=== PATIENT | female | born 1960 | race Caucasian/White ===

== ENCOUNTER 2019-01-23 14:00 | Emergency (ER) | payer OTHER ==
[2019-01-23] MEDS ORDERED: ONDANSETRON 4 MG/2 ML VIAL ONE (14:22)
[2019-01-23] MEDS ORDERED: NA CHLORIDE 0.9% 1,000 ML ONE (14:22)
[2019-01-23 14:45] LABS: Absolute Lymphocytes (CBC) 3.3 K/uL (0.7-4.9); Basophils % 1.2 % (0-1.3); Hematocrit 39.7 % (36.0-45.0); Lymphocytes % 27.1 % (15.3-44.8); RBC Red Blood Cell Count 4.38 M/uL (3.86-4.86)
--- NOTE | 2019-01-23 14:48 | RAD REPORT ---
EXAM DESCRIPTION: US - Abdomen Exam Limited - 01/23/2019 2:30 pm CLINICAL HISTORY: Abdominal pain. COMPARISON: None. FINDINGS: The gallbladder is mildly distended. It contains small amount of sludge. Gallbladder wall is not thickened. Several small gallstones The common bile duct measures 11 millimeters IMPRESSION: Mild gallbladder distention Cholelithiasis Dilatation of the common bile duct
[2019-01-23 14:56] LABS: ALT/SGPT 67 U/L (12-78); AST/SGOT 115 U/L (15-37); Albumin 3.9 g/dL (3.4-5.0); Alkaline Phosphatase 132 U/L (45-117); BUN Blood Urea Nitrogen 18 mg/dL (7-18); Bicarbonate 24 mmol/L (21-32); Bilirubin Direct 0.2 mg/dL (0-0.2); Bilirubin Total 0.5 mg/dL (0.2-1.0); Glucose Level 113 mg/dL (74-106); Lipase 100 U/L (73-393); Potassium 3.8 mmol/L (3.5-5.1); Protein, Total 7.6 g/dL (6.4-8.2); Sodium Level 138 mmol/L (136-145); Troponin (Emerg Dept Use Only) < 0.02 ng/mL (0.0-0.045)
--- NOTE | 2019-01-23 15:23 | RAD REPORT ---
EXAM DESCRIPTION: CTAbdomen Pelvis W Contrast - 01/23/2019 3:13 pm CLINICAL HISTORY: Abdominal pain. 6 months s/p gastric bypass;Abd pain COMPARISON: Abdomen Exam Limited dated 01/23/2019 TECHNIQUE: Biphasic CT imaging of the abdomen and pelvis was performed with 100 ml non-ionic IV cont rast. All CT scans are performed using dose optimization technique as appropriate and may include automated exposure control or mA/KV adjustment according to patient size. FINDINGS: The lung bases are clear.Postsurgical changes are present about the stomach. Mild dilatation of the intrahepatic biliary tree is seen with gallbladder distention. Common bile dheeraj t also appears mildly prominent measuring 10-11 mm. No liver mass. Spleen is extremely small in size. The pancreas, adrenal glands and kidneys within normal limits. No bowel obstruction, free air, free fluid or abscess. The appendix is not identified as a discrete structure, however, no secondary findings of appendicitis are identified. No evidence of significan t lymphadenopathy. No suspicious bony findings. IMPRESSION: The gallbladder appears distended with mild intrahepatic biliary tree dilatation noted. Common bile duct also appears mildly prominent measuring 10-11 mm.
[2019-01-23 15:42] LABS: Urine Blood NEGATIVE (NEG); Urine Glucose NEGATIVE (NEG); Urine Protein NEGATIVE (NEG); Urine Specific Gravity 1.015 (1.005-1.030)
--- NOTE | 2019-01-23 15:46 | EKG ---
Test Date: 2019-01-23 Test Time: 15:02:22 Rotary Operator: CATHY MEASUREMENT RESULTS: Intervals: Rate: 49 HI: 166 QRSD: 84 QT: 432 QTc: 390 [place]: P: 59 HI: 166 QRS: 21 T: 65 INTERPRETIVE STATEMENTS: Sinus bradycardia with sinus arrhythmia Otherwise normal ECG No previous ECG available for comparison Electronically Signed On 01-23-19 15:46:35 CDT by Gilbert Alonso
--- NOTE | 2019-01-23 16:03 | EDPHYS ---
Physician Documentation [facility] Name: Marli Fragoso Age: 59 yrs Sex: Female : 1960 Arrival Date: 01/23/2019 Time: 14:01 Bed 6 Private MD: ED Physician Austin Martinez HPI: 01/23 14:29 This 59 yrs old Female presents to ER via EMS with complaints of Abd Pain > rn 50 y/o. 14:29 The patient presents with abdominal pain in the epigastric area. Onset: The rn symptoms/episode began/occurred just prior to arrival. The symptoms do not radiate. Associated signs and symptoms: Pertinent positives: nausea, Pertinent negatives: anorexia, blood in stools, chest pain, constipation, diarrhea, dysuria, fever, hematuria, shortness of breath, vaginal discharge, vomiting, vomiting blood. The symptoms are described as achy, crampy, sharp. Modifying factors: The symptoms are alleviated by nothing, the symptoms are aggravated by touching the area. Severity of pain: At its worst the pain was moderate in the emergency department the pain has improved. The patient has not experienced similar symptoms in the past. The patient has not recently seen a physician. Sudden abd pain that began at rest, no fever, + nausea, no diarrhea. Reports gastric bypass 6 months ago, has been fine since then. No radiation to back.. Historical: - Allergies: 14:12 No Known Allergies; sg - Home Meds: 14:12 Synthroid Oral [Active]; Cholesterol Medication- Non Compliant [Active]; sg - PMHx: 14:12 Hypothyroidism; sg - PSHx: 14:12 None; sg - Immunization history:: Adult Immunizations up to date. - Social history:: Smoking status: Patient/guardian denies using tobacco. - Ebola Screening: : Patient negative for fever greater than or equal to 101.5 degrees Fahrenheit, and additional compatible Ebola Virus Disease symptoms Patient denies exposure to infectious person Patient denies travel to an Ebola-affected area in the 21 days before illness onset No symptoms or risks identified at this time. - Family history:: not pertinent. - Hospitalizations: : No recent hospitalization is reported. ROS: 14:29 Constitutional: Negative for fever, chills, and weight loss, Eyes: Negative for injury, rn pain, redness, and discharge, Neck: Negative for injury, pain, and swelling, Cardiovascular: Negative for chest pain, palpitations, and edema, Respiratory: Negative for shortness of breath, cough, wheezing, and pleuritic chest pain, Abdomen/GI: Negative for vomiting, diarrhea, and constipation, Back: Negative for injury and pain, : Negative for injury, bleeding, discharge, and swelling, MS/Extremity: Negative for injury and deformity, Skin: Negative for injury, rash, and discoloration, Neuro: Negative for headache, weakness, numbness, tingling, and seizure. Exam: 14:29 Constitutional: This is a well developed, well nourished patient who is awake, alert, rn holding abd. Head/Face: Normocephalic, atraumatic. ENT: MMM Cardiovascular: Regular rate and rhythm. No pulse deficits. Respiratory: No increased work of breathing, no retractions or nasal flaring. Speaking full sentences. Abdomen/GI: soft, + RUQ tenderness, no rebound, no peritoneal signs. MS/ Extremity: Pulses equal, no cyanosis. Neurovascular intact. Full, normal range of motion. Equal circumference. Neuro: Awake and alert, GCS 15, oriented to person, place, time, and situation. Cranial nerves II-XII grossly intact. Motor strength 5/5 in all extremities. Sensory grossly intact. Vital Signs: 14:12 BP 161 / 89; Pulse 92; Resp 16; Temp 97.5(O); Pulse Ox 100% on R/A; Pain 6/10; sg 16:00 BP 146 / 86; Pulse 89; Resp 16 S; Pulse Ox 100% on R/A; jl7 17:30 BP 136 / 79; Pulse 84; Resp 17 S; Pulse Ox 100% on R/A; jl7 19:15 BP 122 / 67; Pulse 55; Resp 16; Temp 97.4(O); Pulse Ox 98% on R/A; jb4 20:14 BP 133 / 76; Pulse 62; Resp 16; Pulse Ox 98% on R/A; jb4 MDM: 14:01 Patient medically screened. rn 14:47 Refusal of service: The patient/guardian displays adequate decision making capability rn and despite a detailed discussion of alternatives, benefits, risks, and consequences refuses: pain medication. 16:00 Differential diagnosis: cholecystitis, Cholelithiasis, gastritis, gastroesophageal rn reflux disease, non-specific abd pain, pancreatitis, Peptic Ulcer Disease. Data reviewed: vital signs, nurses notes, lab test result(s), radiologic studies, CT scan, ultrasound, and as a result, I will admit patient. Counseling: I had a detailed discussion with the patient and/or guardian regarding: the historical points, exam findings, and any diagnostic results supporting the discharge/admit diagnosis, lab results, radiology results, the need for further work-up and treatment in the hospital. Response to treatment: the patient's symptoms have markedly improved after treatment, and as a result, I will admit patient. Admission orders: after a detailed discussion of the patient's condition and case, the admit orders are written by me. ED course: Patient with possible choledocholithiasis vs sphincter of Oddi dysfunction, will admit for MRCP, GI, and surgery consult. . 16:38 ED course: Dr. Meyers spoke with Dr. Soria who states patient must be transferred to [facility] given hx of gastric bypass surgery and he states will not be able to perform ERCP here. . 18:30 ED course: Accepted for transfer to [facility] for GI, hospitalist admit. rn 01/23 14:03 Order name: Basic Metabolic Panel; Complete Time: 15:10 01/23 14:03 Order name: CBC with Diff; Complete Time: 15:10 01/23 14:03 Order name: Creatinine for Radiology; Complete Time: 15:10 01/23 14:03 Order name: Hepatic Function; Complete Time: 15:10 01/23 14:03 Order name: Lipase; Complete Time: 15:10 01/23 14:03 Order name: Troponin (emerg Dept Use Only); Complete Time: 15:10 rn 01/23 14:03 Order name: US Abdomen Limited; Complete Time: 15:10 rn 01/23 14:03 Order name: CT Abd/Pelvis - IV Contrast Only; Complete Time: 15:36 rn 01/23 14:03 Order name: EKG; Complete Time: 14:04 rn 01/23 15:28 Order name: Urine Dipstick--Ancillary (enter results); Complete Time: 15:57 az 01/23 14:03 Order name: IV Saline Lock; Complete Time: 14:16 rn 01/23 14:03 Order name: Labs collected and sent; Complete Time: 14:16 rn 01/23 14:03 Order name: EKG - Nurse/Tech; Complete Time: 15:19 rn Administered Medications: 15:20 Drug: NS 0.9% 1000 ml Route: IV; Rate: 1000 ml; Site: left forearm; sg 16:19 Follow up: Response: No adverse reaction; IV Status: Completed infusion; IV Intake: sg 990ml 16:08 Drug: Rocephin - (cefTRIAXone) 1 grams Route: IVPB; Infused Over: 30 mins; Site: left sg forearm; 16:40 Follow up: Response: No adverse reaction; IV Status: Completed infusion sg 16:18 Drug: Flagyl 500 mg Volume: 100 ml; Route: IVPB; Rate: 200 ml/hr; Infused Over: 30 sg mins; Site: left forearm; 16:50 Follow up: Response: No adverse reaction; IV Status: Completed infusion jl7 17:12 Drug: Zofran 4 mg Route: IVP; Site: left forearm; sg 17:30 Follow up: Response: No adverse reaction; Nausea is decreased jl7 Disposition: 01/23/19 18:32 Transfer ordered to [facility]. Diagnosis are Cholelithiasis, Biliary dilatation, Upper abdominal pain, unspecified. - Reason for transfer: Higher level of care. - Accepting physician is Dr. Ackerman. - Condition is Stable. - Problem is new. - Symptoms have improved. Signatures: Dispatcher [employer] EDMS Enoch Willis RN RN sg Austin Martinez MD MD rn Bryson, James, RN RN jb4 Michelle Marino RN jl7 Corrections: (The following items were deleted from the chart) 16:49 16:02 Hospitalization Ordered by Edgar Meyers DO for Inpatient Admission. Preliminary rn diagnosis is Cholelithiasis; Biliary dilatation. Bed requested for Telemetry/MedSurg (Inpatient). Status is Inpatient Admission. Condition is Stable. Problem is new. Symptoms have improved. UTI on Admission? No. rn 20:19 18:32 01/23/2019 18:32 Transfer ordered to [facility]. Diagnosis is jb4 Cholelithiasis; Biliary dilatation; Upper abdominal pain, unspecified. Reason for transfer: Higher level of care. Accepting physician is Dr. Ackerman. Condition is Stable. Problem is new. Symptoms have improved. rn
--- NOTE | 2019-01-23 16:03 | ER ---
Nurse's Notes [facility] Name: Marli Fragoso Age: 59 yrs Sex: Female : 1960 Arrival Date: 01/23/2019 Time: 14:01 Bed 6 Private MD: Diagnosis: Cholelithiasis;Biliary dilatation;Upper abdominal pain, unspecified Presentation: 01/23 14:12 Presenting complaint: EMS states: RUQ abd pain that began while at work about 30 mins sg ago, reports nausea as well, denies Fever/Diarrhea at this time. Transition of care: patient was not received from another setting of care. Onset of symptoms was January 23, 2019. Risk Assessment: Do you want to hurt yourself or someone else? Patient reports no desire to harm self or others. Initial Sepsis Screen: Does the patient meet any 2 criteria? HR > 90 bpm. No. Patient's initial sepsis screen is negative. Does the patient have a suspected source of infection? Yes: Acute abdominal pain. Care prior to arrival: Medication(s) given: Normal saline infusion, 500 mL, IV initiated. 20 GA, in the left forearm. 14:12 Method Of Arrival: EMS: [facility] sg 14:12 Acuity: RHIANNON 3 sg Historical: - Allergies: 14:12 No Known Allergies; sg - Home Meds: 14:12 Synthroid Oral [Active]; Cholesterol Medication- Non Compliant [Active]; sg - PMHx: 14:12 Hypothyroidism; sg - PSHx: 14:12 None; sg - Immunization history:: Adult Immunizations up to date. - Social history:: Smoking status: Patient/guardian denies using tobacco. - Ebola Screening: : Patient negative for fever greater than or equal to 101.5 degrees Fahrenheit, and additional compatible Ebola Virus Disease symptoms Patient denies exposure to infectious person Patient denies travel to an Ebola-affected area in the 21 days before illness onset No symptoms or risks identified at this time. - Family history:: not pertinent. - Hospitalizations: : No recent hospitalization is reported. Screenin:12 Abuse screen: Denies threats or abuse. Denies injuries from another. Nutritional sg screening: No deficits noted. Tuberculosis screening: No symptoms or risk factors identified. Never had TB. Fall Risk None identified. Assessment: 14:12 General: Appears in no apparent distress. uncomfortable, ill, well groomed, well sg developed, well nourished, Behavior is calm, cooperative, appropriate for age. Pain: Complains of pain in right upper quadrant Quality of pain is described as aching, sharp, stabbing. Neuro: Level of Consciousness is awake, alert, obeys commands, Oriented to person, place, time, situation, Moves all extremities. Gait is steady, Speech is normal, Facial symmetry appears normal. Cardiovascular: Heart tones S1 S2 present Patient's skin is warm and dry. Chest pain is denied. Respiratory: Airway is patent Respiratory effort is even, unlabored, Respiratory pattern is regular, symmetrical. GI: Bowel sounds present X 4 quads. Abd is soft X 4 quads Reports nausea, Pain is 6 out of 10 on a pain scale. : No signs and/or symptoms were reported regarding the genitourinary system. EENT: No signs and/or symptoms were reported regarding the EENT system. Derm: Skin is pink, warm \\T\\ dry. Musculoskeletal: Circulation, motion, and sensation intact. Range of motion: intact in all extremities. 14:12 Reassessment: Patient appears in no apparent distress at this time. offered pt sg pain medication, pt reports " I dont really like pain medication, but if anything changes I will let you know.". 15:20 Reassessment: Patient appears in no apparent distress at this time. pt returned from CT sg at this time, assisted to restroom where a urine sample has been obtained. 17:00 Reassessment: Patient appears in no apparent distress at this time. Patient and/or sg family updated on plan of care and expected duration. Pain level reassessed. Patient is alert, oriented x 3, equal unlabored respirations, skin warm/dry/pink. instructed to please notify staff of any changes and need for pain medication, pt stated understanding, the call light is within reach Patient denies pain at this time. 18:00 Reassessment: Patient appears in no apparent distress at this time. No changes from jl7 previously documented assessment. Patient and/or family updated on plan of care and expected duration. Pain level reassessed. Patient is alert, oriented x 3, equal unlabored respirations, skin warm/dry/pink. 19:02 Reassessment: Patient appears in no apparent distress at this time. attempt to call sg report, instructed to call back due to change of shift, report handed off to Yanira RN, Blake RN. 19:15 Reassessment: Patient appears in no apparent distress at this time. Patient and/or jb4 family updated on plan of care and expected duration. Pain level reassessed. Patient is alert, oriented x 3, equal unlabored respirations, skin warm/dry/pink. 19:41 Reassessment: Report called to AN[facility]IA [facility]. jb4 20:14 Reassessment: Patient appears in no apparent distress at this time. Patient and/or jb4 family updated on plan of care and expected duration. Pain level reassessed. Patient is alert, oriented x 3, equal unlabored respirations, skin warm/dry/pink. PT transferred to receiving facility via EMS. Vital Signs: 14:12 BP 161 / 89; Pulse 92; Resp 16; Temp 97.5(O); Pulse Ox 100% on R/A; Pain 6/10; sg 16:00 BP 146 / 86; Pulse 89; Resp 16 S; Pulse Ox 100% on R/A; jl7 17:30 BP 136 / 79; Pulse 84; Resp 17 S; Pulse Ox 100% on R/A; jl7 19:15 BP 122 / 67; Pulse 55; Resp 16; Temp 97.4(O); Pulse Ox 98% on R/A; jb4 20:14 BP 133 / 76; Pulse 62; Resp 16; Pulse Ox 98% on R/A; jb4 ED Course: 14:01 Patient arrived in ED. jl7 14:01 Austin Martinez MD is Attending Physician. rn 14:05 Radiology exam delayed due to lab results not completed at this time. (BUN/Creatinine). 2 14:11 Enoch Willis, RN is Primary Nurse. sg 14:11 Arm band placed on. sg 14:12 Initial lab(s) drawn, by me, sent to lab. Maintain EMS IV. Dressing intact. Site clean sg \\T\\ dry. Gauge \\T\\ site: 20 G Left Forearm. IV is patent, is intact, with good blood return. 14:16 Triage completed. sg 14:17 Patient has correct armband on for positive identification. Bed in low position. Call sg light in reach. Side rails up X2. ekg monitor on. Pulse ox on. NIBP on. Warm blanket given. Head of bed elevated. 14:31 US Abdomen Limited In Process Unspecified. EDMS 15:07 EKG done, by obstetrics tech. reviewed by Austin Martinez MD. at1 15:13 CT Abd/Pelvis - IV Contrast Only In Process Unspecified. EDMS 15:15 CT completed. Patient tolerated procedure well. Patient moved to CT via wheelchair. in Patient moved back from CT. 16:01 Edgar Meyers DO is Hospitalizing Provider. rn 17:30 No provider procedures requiring assistance completed. jl7 20:14 Patient transferred, IV remains in place. jb4 Administered Medications: 15:20 Drug: NS 0.9% 1000 ml Route: IV; Rate: 1000 ml; Site: left forearm; sg 16:19 Follow up: Response: No adverse reaction; IV Status: Completed infusion; IV Intake: sg 990ml 16:08 Drug: Rocephin - (cefTRIAXone) 1 grams Route: IVPB; Infused Over: 30 mins; Site: left sg forearm; 16:40 Follow up: Response: No adverse reaction; IV Status: Completed infusion sg 16:18 Drug: Flagyl 500 mg Volume: 100 ml; Route: IVPB; Rate: 200 ml/hr; Infused Over: 30 sg mins; Site: left forearm; 16:50 Follow up: Response: No adverse reaction; IV Status: Completed infusion jl7 17:12 Drug: Zofran 4 mg Route: IVP; Site: left forearm; sg 17:30 Follow up: Response: No adverse reaction; Nausea is decreased jl7 Intake: 16:19 IV: 990ml; Total: 990ml. sg Outcome: 16:02 Decision to Hospitalize by Provider. rn 18:32 ER care complete, transfer ordered by . rn 20:14 Transferred by ground EMS to [facility], Transfer form completed. jb4 X-rays sent w/ patient. 20:14 Condition: stable 20:14 Discharge instructions given to patient, Instructed on the need for transfer, Demonstrated understanding of instructions. 20:19 Patient left the ED. jb4 Signatures: Dispatcher [employer] EDMS Enoch Willis RN RN sg Austin Martinez MD MD rn Gonzales, Amanda, mine manager EKG Tat1 Blake Partida RN RN jb4 Vinnie Horton Jahala, ANTONIA RN jl7 Gayla Rayo [facility]
[2019-01-23] MEDS ORDERED: METRONIDAZOLE 500mg IVPB 500 MG/100 ML BAG IV ONE (16:06)
[2019-01-23] MEDS ORDERED: CEFTRIAXONE/SWI 1gm 1 GM/10 ML SYR ONE (16:06)
[2019-01-23 20:28] VITALS: TEMP 97.4; O2SAT 98
[2019-01-23 20:29] VITALS: BP 133/76
== END 2019-01-23 20:19 | disposition short-term general hospital (02) ==
LOC: ER 14:00
DX: K80.20 Calculus of gallbladder without cholecystitis without obstruction (principal); K83.8 Other specified diseases of biliary tract; R10.10 Upper abdominal pain, unspecified; E03.9 Hypothyroidism, unspecified
CPT/HCPCS: 96365; 96361; 93005; 85025; 80048; 36415; 80076; 81003; 84484; 83690; 74177; 76705; 96375; 99285; Q9967; J0696; J7030; J2405

== ENCOUNTER 2019-09-04 19:46 | Inpatient (IN) | payer SELFPAY ==
--- OUTSIDE RECORDS SUMMARY | 2019-09-04 20:16 | XMS REPORT | Clinical Summary ---
:1960 Author Organization [facility] Address [address] [place] [address] Care Team Providers Name Role Phone Unavailable Primary Care Provider Unavailable Allergies Active Allergy Reactions Severity Noted Date Comments Codeine Hives 01/23/2019 Erythromycin Hives 01/23/2019 Sulfa (Sulfonamide Antibiotics) Hives 9 Medications Medication Sig Dispensed Refills Start Date End Date Status levothyroxine Take 112 mcg by 0 Active (SYNTHROID, LEVOTHROID) mouth Every 112 MCG tablet morning on an empty stomach. atorvastatin (LIPITOR) Take 10 mg by 0 Active 10 MG tablet mouth nightly. Active Problems Problem Noted Date Calculus of gallbladder without cholecystitis without obstruction 01/25/2019 Biliary colic 01/25/2019 Cholelithiasis without cholecystitis 01/25/2019 Fatty liver 01/24/2019 Transaminitis 01/24/2019 Choledocholithiasis 01/23/2019 Encounters Date Type Specialty Care Team Description 01/26/2019 Anesthesia Event Domitila Cadet MD 01/26/2019 Surgery Henri, LAPAROSCOPY,CHO GIBSON Pete MD Y 01/23/2019 - Hospital Encounter General Internal Alida Ackerman docholithiasis (Primary Dx); 01/27/2019 Medicine MD Neida Fatty liver; Rivka Murillo Transaminitis; MD Dipak Biliary colic; Calculus of gal lbladder without cholecystitis without obstruction 01/23/2019 Documentation Internal Chalo Ackerman MD after 09/03/2018 Family History Medical History Relation Name Comments Heart disease Brother Heart disease Daughter Hypertension Father Diabetes Paternal Grandmother Heart disease Sister Relation Name Status Comments Brother Daughter Father Paternal Grandmother Sister Social History Tobacco Use Types Packs/Day Years Used Date Never Smoker Smokeless Tobacco: Never Used Alcohol Use Drinks/Week oz/Week Comments No Alcohol Habits Answer Date Recorded How often do you have a drink containing alcohol? Never 01/23/2019 How many drinks containing alcohol do you have on a typical Not asked day when you are drinking? How often do you have six or more drinks on one occasion? No t asked Sex Assigned at Date Recorded Not on file Job Start Date Occupation Industry Not on file Not on file Not on file Travel History Travel Start Travel End No recent travel history available. Last Filed Vital Signs Vital Sign Reading Time Taken Blood Pressure 118/70 01/27/2019 8:21 AM CHIEF BUILDING INSPECTOR Pulse 60 01/27/2019 8:21 AM CHIEF BUILDING INSPECTOR Temperature 36.8 C (98.2 F) 01/27/2019 8:21 AM CHIEF BUILDING INSPECTOR Respiratory Rate 18 01/27/2019 8:21 AM CHIEF BUILDING INSPECTOR Oxygen Saturation 97% 01/27/2019 8:21 AM CHIEF BUILDING INSPECTOR Inhaled Oxygen Concentration - - Weight 86.2 kg (190 lb) 01/23/2019 10:14 PM CDT Height 167.6 cm (5' 6") 01/23/2019 10:14 PM CDT Body Mass Index 30.67 01/23/2019 10:14 PM CDT Plan of Treatment Health Maintenance Due Date Last Done Comments BREAST CANCER SCREENING 1960 COLON CANCER SCREENING COLONOSCOPY 1960 INFLUENZA VACCINE (#1) 2018 Procedures Procedure Name Priority Date/Time Associated Comments Diagnosis RHYTHM STRIP - SCAN 01/29/2019 10:21 AM CHIEF BUILDING INSPECTOR TRANSFUSION SERVICE 01/27/2019 6:01 REPORT - SCAN PM CHIEF BUILDING INSPECTOR CBC W/PLT COUNT & Routine 01/27/2019 4:49 Result s for this AUTO DIFFERENTIAL AM CHIEF BUILDING INSPECTOR procedure are in the results section. BASIC METABOLIC PANEL Routine 01/27/2019 4:49 Re sults for this (7) AM CHIEF BUILDING INSPECTOR procedure are i n the results section. CBC W/PLT COUNT & Routine 01/27/2019 4:49 Result s for this AUTO DIFFERENTIAL AM CHIEF BUILDING INSPECTOR procedure are in the results section. HEPATIC FUNCTION Routine 01/27/2019 4:49 Results for this PANEL AM CHIEF BUILDING INSPECTOR procedure are i n the results section. TISSUE EXAM AP Routine 01/26/2019 5:02 Results for this PM CHIEF BUILDING INSPECTOR procedure are i n the results section. LAPAROSCOPY,CHOLECYST 01/26/2019 9:48 Biliary colic ECTOMY AM CHIEF BUILDING INSPECTOR Special Needs REQ: TF ABORH, MANUAL STAT 01/26/2019 5:16 AM CHIEF BUILDING INSPECTOR Res ults for this procedure are i n the results section . CBC W/PLT COUNT & AUTO Routine 01/26/2019 4:53 AM CHIEF BUILDING INSPECTOR Results for this DIFFERENTIAL procedure are i n the results section . TYPE AND SCREEN, AUTOMATED Routine 01/26/2019 4:53 AM CHIEF BUILDING INSPECTOR Results for this procedure are i n the results section . HEPATIC FUNCTION PANEL Routine 01/26/2019 4:53 AM CHIEF BUILDING INSPECTOR Results for this procedure are i n the results section . BASIC METABOLIC PANEL (7) Routine 01/26/2019 4:53 AM CHIEF BUILDING INSPECTOR Results for this procedure are i n the results section . CBC W/PLT COUNT & AUTO Routine 01/26/2019 4:53 AM CHIEF BUILDING INSPECTOR Results for this DIFFERENTIAL procedure are i n the results section . T4, FREE Routine 01/25/2019 4:39 AM CHIEF BUILDING INSPECTOR Resu lts for this procedure are i n the results section . TSH/FREE T4 IF INDICATED Routine 01/25/2019 4:39 AM CHIEF BUILDING INSPECTOR Results for this procedure are i n the results section . HEPATITIS PANEL, ACUTE Routine 01/25/2019 4:39 AM CHIEF BUILDING INSPECTOR Results for this procedure are i n the results section . HEPATIC FUNCTION PANEL Routine 01/25/2019 4:39 AM CHIEF BUILDING INSPECTOR Results for this procedure are i n the results section . MR ABDOMEN WO CONTRAST MRCP Routine 01/24/2019 3:50 PM CDT Results for this procedure are i n the results section . BLOOD CULTURE Routine 01/24/2019 12:43 AM CDT Res ults for this procedure are i n the results section . CBC W/PLT COUNT & AUTO Routine 01/24/2019 12:37 AM CDT Results for this DIFFERENTIAL procedure are i n the results section . LIPASE Routine 01/24/2019 12:37 AM CDT Resu lts for this procedure are i n the results section . PROTHROMBIN TIME/INR Routine 01/24/2019 12:37 AM CDT Results for this procedure are i n the results section . HEPATIC FUNCTION PANEL Routine 01/24/2019 12:37 AM CDT Results for this procedure are i n the results section . CBC W/PLT COUNT & AUTO Routine 01/24/2019 12:37 AM CDT Results for this DIFFERENTIAL procedure are i n the results section . BASIC METABOLIC PANEL (7) Routine 01/24/2019 12:37 AM CDT Results for this procedure are i n the results section . BLOOD CULTURE Routine 01/24/2019 12:37 AM CDT Res ults for this procedure are i n the results section . after 09/03/2018 Results RHYTHM STRIP - SCAN (01/29/2019 10:21 AM CHIEF BUILDING INSPECTOR) Narrative Performed At This result has an attachment that is no t available. TRANSFUSION SERVICE REPORT - SCAN (01/27/2019 6:01 PM CHIEF BUILDING INSPECTOR) Narrative Performed At This result has an attachment that is no t available. CBC with platelet count + automated diff (01/27/2019 4:49 AM CHIEF BUILDING INSPECTOR)Only the most recent of3 resultswithin the time period is included. WBC 12.7 (H) 3.5 - 10.5 K/L [facility] RBC 4.49 3.93 - 5.22 M/L [facility] Hemoglobin 13.4 11.2 - 15.7 GM/DL [facility] Hematocrit 41.5 34.1 - 44.9 % [facility] MCV 92.4 79.4 - 94.[address] [facility] MCH 29.8 25.6 - 32.[address] [facility] MCHC 32.3 32.2 - 35.5 GM/DL [facility] RDW 13.9 11.7 - 14.4 % [facility] Platelets 416 150 - 450 K/CU MM [facility] MPV 11.4 9.4 - 12.[address] [facility] nRBC 0 0 - 0 /[address] [facility] % Neutros 85 % [facility] % Lymphs 9 % [facility] % Monos 6 % [facility] % Eos 0 % [facility] % Baso 0 % [facility] # Neutros 10.75 (H) 1.56 - 6.13 K/L [facility] # Lymphs 1.15 (L) 1.18 - 3.74 K/L [facility] # Monos 0.74 (H) 0.24 - 0.36 K/L [facility] # Eos 0.00 (L) 0.04 - 0.36 K/L [facility] # Baso 0.04 0.01 - 0.08 K/L [facility] Immature 0 0 - 1 % [facility] Granulocytes-Relative MEDICAL CE NTER Specimen Blood Performing Organization Address City/State/Zipcode Phone Number [address] [address] [place] Hepatic function panel (01/27/2019 4:49 AM CHIEF BUILDING INSPECTOR)Only the most recent of4 results within the time period is included. Protein, Total 7.2 6.0 - 8.3 gm/dL [facility] Albumin 4.0 3.5 - 5.0 g/dL [facility] Total Bilirubin 0.5 0.2 - 1.2 mg/dL [facility] Bilirubin, Direct 0.2 0.1 - 0.5 mg/dL [facility] Alkaline Phosphatase 166 (H) 40 - 150 U/L [facility] AST 76 (H) 5 - 34 U/L [facility] ALT 217 (H) 6 - 55 U/L [facility] Specimen Blood Performing Organization Address City/State/Zipcode Phone Number [address] [address] [place] Basic Metabolic Panel (01/27/2019 4:49 AM CHIEF BUILDING INSPECTOR)Only the most recent of3 results within the time period is included. Sodium 138 136 - 145 meq/L [facility] Potassium 5.1 3.5 - 5.1 meq/L [facility] Chloride 106 98 - 107 meq/L [facility] CO2 25 22 - 29 meq/L [facility] BUN 8 7 - 21 mg/dL [facility] Creatinine 0.71 0.57 - 1.25 mg/dL [facility] Glucose 132 (H) 70 - 105 mg/dL [facility] Calcium 9.3 8.4 - 10.2 mg/dL [facility] EGFR 84Comment: ESTIMATED GFR IS mL/min/1.73 sq m [facility] NOT ACCURATE CREATININE [facility] CLEARANCE IN PREDICTING GLOMERULAR FILTRATION RATE. ESTIMATED GFR IS NOT APPLICABLE FOR DIALYSIS PATIENTS. Specimen Blood Performing Organization Address City/State/Zipcode Phone Number [facility] [address] [place] [address] CENTER Tissue Exam (01/26/2019 5:02 PM CHIEF BUILDING INSPECTOR) Case Report Surgical Pathology Report Case: [id number] [facility] Authorizing Provider:Juan R Black MDCollected: 01/26/2019 [facility] Ordering Location: [facility] PERIOPERATIVE Received:01/26/2019 1749 SERVICES Pathologist: Domi Williamson MD Specimen:Gallbladder DIAGNOSIS GALLBLADDER, CHOLECYSTECTOMY [facility] - CHRONIC CHOLECYSTITIS [facility] Signing Pathologist Direct Phone Line: CPT Code(s) 16657 [facility] CLINICAL HISTORY Biliary colic [facility] ER SPECIMEN SOURCE Gallbladder [facility] ER GROSS DESCRIPTION Received fresh labeled [facility] "gallbladder" is a 13.5 cm [facility] in length, 2 cm in cystic duct diameter and 4.5 cm cystic body diameter intact gallbladder. The serosa is astudillo-pink and smooth with a ragged slightly cauterized hepatic surface. No cystic duct lymph node is identified. The gallbladder is opened to reveal a astudillo-red, slightly bile stained, velvety, smooth, soft mucosa with a cavity filled with viscous green bile. Sectioning reveals a soft astudillo-pink gallbladder wall measuring up to 0.2 cm in thickness. No calculi are identified. No discrete lesions are identified within the wall. Ict Business Development Manager sections are submitted as follows: A1, cystic duct margin, en face; A2, leasing representative gallbladder wall to include cystic duct and cystic body. SH/ew MICROSCOPIC DESCRIPTION Performed. [facility] ER Gross assessment was [facility] performed at [place], Department of [facility] Pathology, [address] [place] [id number], Technical component was [facility] performed at [place], Department of [facility] Pathology, [address] [place] [phone], Professional component [facility] was performed at [place], Department of [facility] Pathology, [address] [place] [address], Specimen Tissue Performing Organization Address City/[facility]/Zipcode Phone Number [address] [address] [place] ABORH, manual (01/26/2019 5:16 AM CHIEF BUILDING INSPECTOR) ABO Grouping A [facility] Rh Factor NEG [facility] Specimen Blood Performing Organization Address City/State/Zipcode Phone Number [address] [address] Type and screen, automated (01/26/2019 4:53 AM CHIEF BUILDING INSPECTOR) ABO/RH AUTOMATED (BEAKER) A NEGATIVE [facility] Ab Scrn NEGATIVE [facility] Specimen Blood Performing Organization Address City/[facility]/Zipcode Phone Number [facility] [address] [place], [place] [phone] TSH/Free T4 If Indicated (01/25/2019 4:39 AM CHIEF BUILDING INSPECTOR) TSH 5.32 (H) 0.35 - 4.94 uIU/mL [facility] Specimen Blood Performing Organization Address City/[facility]/Zipcode Phone Number [address] [address] [place] Hepatitis panel, acute (01/25/2019 4:39 AM CHIEF BUILDING INSPECTOR) Hep A IgM Nonreactive Nonreactive [facility] Hep B C IgM Nonreactive Nonreactive [facility] Hepatitis C Ab Nonreactive Nonreactive [facility] HBsAg Screen Nonreactive Nonreactive [facility] Specimen Blood Performing Organization Address City/[facility]/Zipcode Phone Number [address] [phone] [place] T4, free (01/25/2019 4:39 AM CHIEF BUILDING INSPECTOR) Free T4 0.91 0.70 - 1.48 ng/dL [facility] Specimen Blood Performing Organization Address City/[facility] Cent[facility]ode Phone Number [address] [address] [place] MR abdomen without IV contrast MRCP (01/24/2019 3:50 PM CDT) Specimen Narrative Performed At FINAL REPORT [facility] TECHNIQUE: MRI of the abdomen and MRCP W ITHOUT intravenous contrast. 3-D volume reconstructions were obtained to evaluate the biliary ductal system. INDICATION: Biliary obstruction suspecte d. COMPARISON: None. FINDINGS: ABSENCE OF INTRAVENOUS CONTRAST DECREASE S SENSITIVITY FOR DETECTION OF FOCAL LESIONS AND VASCULAR PATHOLOGY. LOWER THORAX: Unremarkable. LIVER: No hepatic signal abnormality. No focal hepatic lesions. BILIARY: The gallbladder wall is thicken ed, and the gallbladder contains sludge. The sludge extends into the cystic duct. While the entire cystic duct is not able to be vis ualized, there is likely a portion which inserts low and medial. SPLEEN: Small residual spleen. PANCREAS: No focal masses or ductal dila tation. ADRENALS: No adrenal nodules. KIDNEYS/URETERS: No hydronephrosis or so lid mass lesions. A left lower pole parapelvic simple renal cyst measures 1.7 cm. PERITONEUM/RETROPERITONEUM: No free flui d. LYMPH NODES: No lymphadenopathy. Promine nt but nonenlarged mesenteric, retroperitoneal, and upper a bdominal lymph nodes are likely reactive. VESSELS: Unremarkable. GI TRACT: No distention or wall thickeni ng. Prior Sergio-en-Y gastric bypass. BONES AND SOFT TISSUES: Prior bilateral breast augmentation. IMPRESSION: 1.There is gallbladder wall thickening w ith gallbladder sludge including sludge in the cystic duct. Jose e small, rounded areas of hypointense T2 weighted signal could be stones. This could be clarified with ultrasound. While this is nonspecific, this could be due to acute cholecystitis in the [facility] clinical setting. If further imaging evaluation is necessary, consider HIDA. 2.The common bile duct is normal in zully salome at 0.6 cm in diameter. No choledocholithiasis. 3.The prominent but nonenlarged retroper itoneal, mesenteric and perihepatic lymph nodes are likely react manohar. Signed: Baljeet Gillis MD Report Verified Date/Time:01/24/2019 17:38:42 Reading Location: [facility] C0Y CT Body R [facility] Procedure Note Interface, External Ris In - 01/24/2019 5:40 PM CDT FINAL REPORT TECHNIQUE: MRI of the abdomen and MRCP W ITHOUT intravenous contrast. 3-D volume reconstructions were obtained to evaluate the biliary ductal system. INDICATION: Biliary obstruction suspecte d. COMPARISON: None. FINDINGS: ABSENCE OF INTRAVENOUS CONTRAST DECREASE S SENSITIVITY FOR DETECTION OF FOCAL LESIONS AND VASCULAR PATHOLOGY. LOWER THORAX: Unremarkable. LIVER: No hepatic signal abnormality. No focal hepatic lesions. BILIARY: The gallbladder wall is thicken ed, and the gallbladder contains sludge. The sludge extends into the cystic duct. While the entire cystic duct is not able to be vis ualized, there is likely a portion which inserts low and medial. SPLEEN: Small residual spleen. PANCREAS: No focal masses or ductal dila tation. ADRENALS: No adrenal nodules. KIDNEYS/URETERS: No hydronephrosis or so lid mass lesions. A left lower pole parapelvic simple renal cyst measures 1.7 cm. PERITONEUM/RETROPERITONEUM: No free flui d. LYMPH NODES: No lymphadenopathy. Promine nt but nonenlarged mesenteric, retroperitoneal, and upper a bdominal lymph nodes are likely reactive. VESSELS: Unremarkable. GI TRACT: No distention or wall thickeni ng. Prior Sergio-en-Y gastric bypass. BONES AND SOFT TISSUES: Prior bilateral breast augmentation. IMPRESSION: 1.There is gallbladder wall thickening w ith gallbladder sludge including sludge in the cystic duct. Jose e small, rounded areas of hypointense T2 weighted signal could be stones. This could be clarified with ultrasound. While this is nonspecific, this could be due to acute cholecystitis in the [facility] clinical setting. If further imaging evaluation is necessary, consider HIDA. 2.The common bile duct is normal in zully salome at 0.6 cm in diameter. No choledocholithiasis. 3.The prominent but nonenlarged retroper itoneal, mesenteric and perihepatic lymph nodes are likely react manohar. Signed: Baljeet Gillis MD Report Verified Date/Time: 01/24/2019 1 7:38:42 Reading Location: [facility] B1 C013Y CT Body R [facility] Room Performing Organization Address City/State/Zipcode Phone Number [facility] Blood Culture - Routine (Right Venipuncture) (01/24/2019 12:43 AM CDT)Only the most recent of2 resultswithin the time period is included. Result No growth in 5 days [facility] Specimen Blood Performing Organization Address City/State/Zipcode Phone Number [place] [phone] [place] [address] CENTER Prothrombin time/INR (01/24/2019 12:37 AM CDT) Protime 12.6 11.9 - 14.2 seconds [facility] INR 1.0 <=5.9 [facility] Specimen Blood Narrative Performed At Effective 08/20/2018: PT Reference Range [facility] Change New: 11.9-14.2Previous: 11.7-14.7 RECOMMENDED COUMADIN/WARFARIN INR THERAPY RANGES STANDARD DOSE: 2.0-3.0Includes: PROPHYLAXIS for venous thrombosis, systemic embolization; TREATMENT for venous thrombosis and/or pulmonary embolus. HIGH RISK: Target INR is 2.5-3.5 for patients wiht mechanical heart valves. Performing Organization Address City/State/[facility]ode Phone Number [facility] [address] [place] [address] CENTER Lipase (01/24/2019 12:37 AM CDT) Lipase 20 8 - 78 U/L [facility] Specimen Blood Performing Organization Address City/State/Zipcode Phone Number [facility] [address] [place] [address] CENTER after 09/03/2018 Insurance Payer Benefit Plan / Group Subscriber ID Type Phone A ddress [employer] - MGD CARE CIGNA HMO/POS/OPEN ACCESS xxxxxxxxxxx HMO/POS Advance Directives For more information, please contact:[address] [phone] Code Status Date Activated Date Inactivated Comments Full Code 01/23/2019 11:50 PM 01/27/2019 11:16 AM This code status was determined by: Patient
--- OUTSIDE RECORDS SUMMARY | 2019-09-04 20:16 | XMS REPORT | Clinical Summary ---
:1960 Author Organization [facility] Address [address] [place] [address] Care Team Providers Name Role Phone Tori Rodriguez Danielle MARITIME OFFICER-C Primary Care Provider Allergies Active Allergy Reactions Severity Noted Date Comments Sulfamethoxazole-Trimethoprim 09/06/2015 Codeine 09/06/2015 Erythromycin 09/06/2015 Sulfa (Sulfonamide Antibiotics) 6 Medications Medication Sig Dispensed Refills Start Date End Date Status levothyroxine TAKE 1 TABLET BY 1 01/07/2018 Active (SYNTHROID, LEVOXYL) MOUTH EVERY DAY 112 mcg tablet IN THE MORNING ON EMPTY STOMACH lisinopril Take 10 mg by 0 Activ e (PRINIVIL,ZESTRIL) 10 mouth daily. mg tablet cholecalciferol, Take 400 Units by 0 Active vitamin D3, (VITAMIN mouth. D3) 400 unit tablet multivitamin capsule Take 1 capsule by 0 Active mouth. Active Problems Problem Noted Date Morbid obesity 06/25/2018 Reactive arthritis 09/06/2015 Hypothyroidism 09/06/2015 Family History Medical History Relation Name Comments Psoriasis Cousin mat Heart disease Daughter Heart disease Father Heart disease Grandchild Heart disease Mother Relation Name Status Comments Brother with VSD Cousin mat Other Daughter Father Grandchild Mother Sister Alive Social History Tobacco Use Types Packs/Day Years Used Date Former Smoker Smokeless Tobacco: Never Used Alcohol Use Drinks/Week oz/Week Comments No RARELY Sex Assigned at Date Recorded Not on file Job Start Date Occupation Industry Not on file Not on file Not on file Travel History Travel Start Travel End No recent travel history available. Last Filed Vital Signs Not on file Plan of Treatment Health Maintenance Due Date Last Done Comments CERVICAL CANCER SCREENING 01/17/1981 BREAST CANCER SCREENING 01/17/2010 COLONOSCOPY SCREENING 01/17/2010 SHINGLES VACCINES (#1) 01/17/2010 INFLUENZA VACCINE 10/24/2019 Implants Implanted Type Area Work Checker Device Shelf Model / Identifier Expiration Serial / Date Lot Seamguard 60 Stapler Compatible With Intuitive Surg[employer] l Sureform Black Stapling - N/A: [employer] 10/22/2020 [id number] / Implanted: Qty: 1 on 06/25/2018 by Petr Schuster MD at [facility] Endo Stomach / cutters, [id number] staplers, reloads Stapler Surgcl Endopath [place] Flex 60 Endoscpc - [id number] [place] rgical N/A: W L [employer] 12/22/2020 [id number] / Implanted: Qty: 1 on 06/25/2018 by Petr Schuster MD at [facility] Implants; Stomach / Expanders; [id number] Extenders; Surgical Wires Stapler Surgcl Endopath [place] Flex 60 Endoscpc - [id number] [place] rgical N/A: [employer] 01/22/2021 [id number] / Implanted: Qty: 1 on 06/25/2018 by Petr Schuster MD at [facility] Implants; Stomach / Expanders; [id number] Extenders; Surgical Wires Results Not on fileafter 09/03/2018 Advance Directives For more information, please contact: [phone] Type Date Recorded Patient Sales Person Explanati on Advance Directives, Living Will and Medical Power of Entry Level Finance
--- OUTSIDE RECORDS SUMMARY | 2019-09-04 20:18 | XMS REPORT | Continuity of Care Document ---
:1960 Author Organization [facility] t Address [address] [place] [address] Care Team Providers Name Role Phone Jennifer YANI Danielle Primary Care Physician MEKA Attending Clinician Unavailable Meka PAPPAS Attending Clinician Porter Murillo MD Attending Clinician Chichi PAPPAS, [facility] Attending Clinician Henri PAPPAS Attending Clinician PORTER MURILLO Admitting Clinician Unavailable Payers Payer Name Policy Type Policy Number Effective Date Expiration Date S logan CIGNA - MGD xxxxxxxxxxx [facility] CARECIGNA - Medical HMO/POS/OPEN Center ACCESSxxxxxxxxx xxHMO/POS Problems Condition Condition Condition Status Onset Resolution Last Treating Co mments Source Name Details Category Date Date Treatment Clinician Date Calculus Calculus Disease Active 2018-03 [facility] - gallbladde gallbladde 00:00: Me dical r without r without 00 Cent er cholecysti cholecysti tis tis without without obstructio obstructio n n Biliary Biliary Disease Active 2018-[address] colic colic 03-27 [facility] - 00:00: Medical 00 Center Cholelithi Cholelithi Disease Active 2018-[address] asis asis 03-27 [facility] - without without 00:00: Medical cholecysti cholecysti 00 Ce nter tis tis Fatty Fatty Disease Active 2018-[address] liver liver 03-26 [facility] - 00:00: Medical 00 [place] Transamini Transamini Disease Active 2018-[address] tis tis 03-26 [facility] - 00:00: Medical 00 [place] Choledocho Choledocho Disease Active 2018-[address] lithiasis lithiasis 03-25 [facility] - 00:00: Medical 00 [place] Morbid Morbid Disease Active [place] obesity obesity 4-03 Methodi 00:00: st 00 Reactive Reactive Disease [place] arthritis arthritis 09-05 Meth jeronimo 00:00: st 00 Hypothyroi Hypothyroi Disease Active [place] dism dism 09-05 Methodi 00:00: st 00 Allergies, Adverse Reactions, Alerts Allergy Allergy Status Severity Reaction(s) Onset Inactive Treating Comm ents Source Name Type Date Date Clinician Codeine Propensi Active [facility] 2018-[address] ty to 03-25 [facility] - adverse 00:00: Medical reaction 00 [place] Erythrom Propensi Active [facility] 2018-[address] ycin ty to 03-25 [facility] - adverse 00:00: Medical reaction 00 [place] Sulfa Propensi Active [facility] 2018-[address] (Sulfona ty to 03-25 [facility] - mide adverse 00:00: Medical Antibiot reaction 00 Center ics) s Sulfamet Propensi Active [place] hox[place] ty to 09-05 [facility]i -Trimeth adverse 00:00: st oprim reaction 00 s to drug Codeine Propensi Active [place] ty to 09-05 Methodi adverse 00:00: st reaction 00 s to drug Erythrom Propensi Active [place] ycin ty to 09-05 [facility] adverse 00:00: st reaction 00 s to drug Sulfa Propensi Active [place] (Sulfona ty to 09-05 Methodi mide adverse 00:00: st Antibiot reaction 00 ics) s to drug Family History Family Member Diagnosis Comments Start Date Stop Date Source Cousin Psoriasis [place] Method ist Natural daughter Heart disease [place] Natural daughter Heart disease [facility] Natural father Heart disease [place] Natural father Hypertension [facility] Grandchild Heart disease [place] Met hodist Natural mother Heart disease [place] Natural brother Heart disease [facility] Paternal grandmother Diabetes [facility] Natural sister Heart disease [facility] Social History Social Habit Start Date Stop Date Quantity Comments [facility] History SDOH [facility] - Alcohol Binge Medical [place] ter Sex Assigned At [facility] kes - [facility] History SDOH 2019-01-23 2019-01-23 1 [facility] - Alcohol Frequency 00:00:00 00:00:00 Medical Center Alcohol intake 2018-06-27 2018-06-27 Current [facility] thodist 00:00:00 00:00:00 non-drinker of alcohol (finding) Alcohol Comment 2018-06-20 2018-06-[address] [facility] ethodist 00:00:00 00:00:00 Smoking Status Start Date Stop Date Source Never smoker [facility] M edical [place] Former smoker 2018-06-27 00:00:00 2018-06-27 00:00:00 Peyman Reza Medications Ordered Filled Start Stop Current Ordering Indication Dosage Frequency Signature Comments Components Source Medication Medication Date Date Medication? Clinician (SIG) Name Name levothyroxi 2018-03 Yes 112ug Take [address] ne 1-01 mcg by [place] - (SYNTHROID, 22:12: mouth Medic al LEVOTHROID) 49 Every Center 112 MCG morning on tablet an empty stomach. atorvastati 2018-03 Yes 10mg QD Take [address] [facility] (LIPITOR) 1-01 by mouth Luke s - 10 MG 22:12: nightly. Medical tablet 49 Center lisinopril Yes 10mg QD Take 10 mg [place] (PRINIVIL,Z 4-04 by mouth Meth jeronimo ESTRIL) 10 15:16: daily. st mg tablet 20 cholecalcif Yes 400U Take 400 [place] teresita, 4-04 Units by [facility]i vitamin D3, 15:16: mouth. st (VITAMIN 20 D3) 400 unit tablet multivitami Yes 1{capsu Take 1 [place] capsule 4-04 le} capsule by Meth jeronimo 15:16: mouth. st 20 levothyroxi 2017-03 Yes TAKE 1 [place] 0-16 TABLET BY Methodi (SYNTHROID, 00:00: MOUTH st LEVOXYL) 00 EVERY DAY 112 mcg IN THE tablet MORNING ON EMPTY STOMACH Vital Signs Vital Name Observation Time Observation Value Comments Source Systolic blood 2019-01-27 08:21:00 118 mm[Hg] [facility] Diastolic blood 2019-01-27 08:21:00 70 mm[Hg] [facility] Heart rate 2019-01-27 08:21:00 60 /min [facility] Body temperature 2019-01-27 08:21:00 36.78 Edith [facility] Respiratory rate 2019-01-27 08:21:00 18 /min [facility] Oxygen saturation in 2019-01-27 08:21:00 97 /min [facility] Arterial blood by Medical Ce nter Pulse oximetry Body height 2019-01-23 22:14:00 167.6 cm [facility] Body weight Measured 2019-01-23 22:14:00 86.183 kg [facility] BMI 2019-01-23 22:14:00 30.67 kg/m2 [facility] Procedures Procedure Date / Time Performed Performing Clinician [facility] e RHYTHM STRIP - SCAN 2019-01-29 10:21:07 Provider, Default [facility] TRANSFUSION SERVICE 2019-01-27 18:01:17 Provider, Default [facility] REPORT - SCAN [facility] HEPATIC FUNCTION PANEL 2019-01-27 04:49:00 Rivka Murillo [facility] BASIC METABOLIC PANEL 2019-01-27 04:49:00 Rosalba Houser [facility] (7) [facility] CBC W/PLT COUNT & AUTO 2019-01-27 04:49:00 Rosalba Houser C [facility] TISSUE EXAM 2019-01-26 17:02:00 Henri [facility] LAPAROSCOPY,CHOLECYSTECT 2019-01-26 09:48:00 Henri [facility] ABORH, MANUAL 2019-01-26 05:16:00 Karol Tovar [facility] BASIC METABOLIC PANEL 2019-01-26 04:53:00 Taqueria Hernandez [facility] (7) [facility] HEPATIC FUNCTION PANEL 2019-01-26 04:53:00 Rivka Murillo [facility] TYPE AND SCREEN, 2019-01-26 04:53:00 Taqueria Hernandez [facility] es - AUTOMATED [facility] CBC W/PLT COUNT & AUTO 2019-01-26 04:53:00 Taqueria Hernandez [facility] DIFFERENTIAL [facility] HEPATIC FUNCTION PANEL 2019-01-25 04:39:00 Rivka Murillo [facility] HEPATITIS PANEL, ACUTE 2019-01-25 04:39:00 Rivka Murillo [facility] TSH/FREE T4 IF INDICATED 2019-01-25 04:39:00 Rivka Murillo Porter [facility] T4, FREE 2019-01-25 04:39:00 Rivka Murillo [facility] MR ABDOMEN WO CONTRAST 2019-01-24 15:50:[address] [facility] BLOOD CULTURE 2019-01-24 00:43:00 [facility] BLOOD CULTURE 2019-01-24 00:37:00 [facility]riela [facility] BASIC METABOLIC PANEL 2019-01-24 00:37:00 Gabriela [facility] ([address] [place] [address] HEPATIC FUNCTION PANEL 2019-01-24 00:37:00 Sigifredo Ochoa [facility] PROTHROMBIN TIME/INR 2019-01-24 00:37:00 [facility] LIPASE 2019-01-24 00:37:00 [facility] CBC W/PLT COUNT & AUTO 2019-01-24 00:37:00 Sigifredo Ochoa [facility] Plan of Care Planned Activity Planned Date Details Comments Source Future Scheduled 2019-10-24 INFLUENZA VACCINE [place] Test 00:00:00 [code = INFLUENZA VACCINE] Future Scheduled 2018-11-[address] [facility] - Test 00:00:00 (#1) [code = Medical Center INFLUENZA VACCINE (#1)] Future Scheduled 2010-01-17 BREAST CANCER [place] [facility]odist Test 00:00:00 SCREENING [code = BREAST CANCER SCREENING] Future Scheduled 2010-01-17 COLONOSCOPY SCREENING [place] Test 00:00:00 [code = COLONOSCOPY SCREENING] Future Scheduled 2010-01-17 SHINGLES VACCINES [place] Test 00:00:00 (#1) [code = SHINGLES VACCINES (#1)] Future Scheduled 1981-01-17 Screening for [facility] thodist Test 00:00:00 malignant neoplasm of cervix (procedure) [code = 882263624] Future Scheduled [address] [facility] - Test 00:00:00 SCREENING [code = Medical Ce nter BREAST CANCER SCREENING] Future Scheduled [address] [facility] - Test 00:00:00 SCREENING COLONOSCOPY [facility] [code = COLON CANCER SCREENING COLONOSCOPY] Results Test Description Test Time Test Comments Results Result Comments Source Tissue Exam 2019-02-04 14:23:00 Test Item Value Reference Range Interpretation Comme nts Case Report (test code = 104) Surgical Pathology Report Case: [id number] Authorizing Provider: Juan R Álvarez MD Collected: 01/26/2019 1702 Ordering Location: [facility] Received: 01/26/2019 1749 SERVICES Pathologist: Domi Williamson MD Specimen: Gallbladder DIAGNOSIS (test code = 3220) q5yxeXUhHIMlx5bsGDPzyIVbUbAhJeOwXdWoKg oLUiRYpbjwTlRIylo1FrY3UgEzCoUKexsjNjFJZn XqilyaccSFJmPEK8zgCdIMFlFGvqAYQhIVrgAf1p vJEwzEpjRvBePELur3gaohJRlsoeeUd2h4gaNYCi QmM8eJHoJAjvP5ribcNdmOQtGXLrPCe9lU29KXUe gU4hfTDsHHfouxBkRLywuiEmmmSdGai8IAVcJ7xy ZKRwOVTdY7MoYZ1mXHSxMjo7UDV3LGP3rVysb9T4 jDIszFRpwBgnOwSnWtFzSTVZh6NnVUk8pCwdF5Nl YJYnKhV0mSWmMYHdFXcyJARbVZVkpoK2mB91EMwb hzG3kSZqa9Cgm58jv899qE0vtBAwZHS0SZPiRDXd aXTfBGGmQPW3GJOzqPOlF3j1YjQxnWYfU9F2CzKp uHTvK5I4BiBykCQrY8T1MxYkyGKjVNKglYBqTk1i fRXnqAQpny6dgf95UFT3g8XtlGpkVNO8QAS4YlBd Ox5cuEFlJHTzIZ8jAcKlwZWvDZFjgi56qOuuRYzn kyDzsN8zCkHdMIMazNZlJOXwCT5scRTtCMBalU9v ufbyAYTmOeVwlvkoYQMxgAjuvsUpNk1qpGiaFGD7 RDwpE9tsbA7tLcO3LIecF2fxhJ6xAVs0KQuusNB3 ZOTuxB4gTF4affyof5qrMkZxBQ3utqihz6nlGrGo QI9kwsn7s7meUdDzWA1nizcnl8juSuZtKUruRLZx pacvQCXdz5UthlkwCADoe5RnU1HcwYryK19zuRyi B89nNWDpyQrqdD2nmMmrrW0bBeRmTxNwPIyjtLrx nAQdgnsnGKhzntBxTTEeMLcuDWTjPQYoZlXhH9WE WYHXLVKFKCUfHDPOW3pQH5aPEGIKRC3KBVkmEUEx VXYnN7yZY28HSbTBOL5NRBMZH9ZEXReTSUYequlv HEV4l4muiBRnHHRjkXZwFXMbMJrqdyUtADTwOhbz wowqWGZjZGY4vbMzGDLqPDegJEXzASefUm2xwNVr jXmyJkDcJDWxi8zlbyTTgesmwUm7q5ouIMWuLfL1 lISeIAdzT5jzkeUkqXQhYVPyHQz3oC78XZMkoU7a qSRaXNhiyyDeRdL1EJymBNAnUiE4NXXebCFzJUMm F3shKQOhLMfpRELqWKjweAWpBXX0lVhka4L2rAFf eCEspXkdBbLmLmKcBpYQv1JcHJp8kLyyD3OgUBUo XbH5yPLjVXDwPCeeUFYkCWSqlxF1aK23VJvyxyV9 xKFbh5Hxm99iu342yY0yiVDtFTS5BBFtSEKcsVJa GZWeXIS2XEEzbMYyQ9ixUUTaIA2okioiCFbwRPpi YNNtoEC5FQCeqQXhJ5MmLNWxYKvrGVKnxjg9XbBk Ko5oyQRdtDzdBJahg0ppc1eviPCfQch3UNJkAqCk PwwqPXgmu0Zva2kyBCHzzr4aXOE6bVYyhRoyb0F4 yUKjPUHilIYvWFGsFP3nvMUrCGVqmY6kbwhoOALg CvPmugcpPEGynIxuriRfVu2icXrdQDB8BDarF3li rN9zLiU4TOhvV4harS8dDJz0VIctUVEtmKX4qpI6 XYBzpANoM3IxlO1tXPKaTL5xfvn4q3jwWQG2OUrl WWYdXcN6rfE6XAXjxZYtQGZviUfxBUkoa150CMN2 LvOpFHJyb9FmA7WdvOlmI09vnKwlF53uZMZmsFwc gV9xfSwhhU6eXrXcDzQoYBgwjVfdKC6kCHDeK2nb xQPpLETeTOSfS1ssDyCewL9ldVsoJLdnlhNkRLHb Kdm6HTCzyUJtQFHpCmd6VJYuRGRlQ46cqyhdREV3 jT9dn9zve7GkSCllSAQ7YYCzx70nXKkwwiO7KLoh Hz8uUqKwWXV0LDrpMBO9xM== CPT Code(s) (test code = 3357) m3jqsFEcZWChuPCdUaMmUSFtYEWao6tgDYVg bGFu VrLoPkBpNrAfTszaeDJwHUWyFiYqz4cyb172dPPk q8bnWBWqUgO2oQBpODGokSRaD448v3ehl2qqhlPi hKU8TAFxGKV6FZlbqhAnroF3XHhqzPOjDgF0DTrw chNeJDluqsGpvsHlBtp9BNTsL760WSH1uCvru4ya CXA0TSTyWGQgHqGxJy9itXSlD989KYQuPNKJUEGa yZb9VSLweyGyhgGspFREs179X549u2ibNAXiijQm dUkYpsnol1utO543HVSfyMTiedBjGxPbEPCwiCKo tPA4QDUrDI4pfnztMuVuJG9xxnfeNpTiEK1vsig2 VgSlOF6hpvqrJwSuNAwcJJVxsdysHZGnt0Qwbqwk XR7iZ2Rqq7P1rG4evCWaKTDnjKXrBwNiTSKfgh6i gMMcVRvyb2JoDWF4kzY6kBRlkRIqQNMcIU78Uknt i0IzAjawHEN0OHTwpkIng4Szk6lsQkDautDnR9kj A5XtDPXcDORwPODuExGedeVwm8Zmr0OklCCxtPi4 n2dpDLMqIVVyeWfml2reBXC2DWOxC1K7vUOuq7uj PQpgWLNwuPF3tsjaJJjfHSAdhiR0gcbrSPcfISYr kMN5gmbkDBwnDUIkZmE9olswWSmcCMSeUNW7JUbc k799UAU5ZMtkBrmdVMfuSNUkooHdniOtbDwpZAXl QVAyXClrGBXpDGjtDQMpXQIgXvJptJjklLzhnH7j TnCcJaJvEFllZR2eBOVgI3rguBJtEIEtHNXrI8vl QpAddJ2ivHzdNIbhwbOfVXk6QqM2MEByyw2= CLINICAL HISTORY (test code = 3356) v7aatJGmMDEuqYLpArAoETMhSBAyd3i cZGVmbGFu BiDgEwEeMyUhKihswGOrUZSzSySxb1ijg235dRIv i1vtUFQnOhU2sYSfXUQtzRImY113m0euy8dzldMi eNZ1HASeDBO1ZWwtjoHvcrT8LTvkhDToScK7OLtp faSmVHcoetPxngTiVyu4KETrO409YSI3hVqrt4aa RMT8VKWgLFRlPoUmHs0ahVXyK649HUTvADTOJLSr uAc1QAWapaJhgxFocLPJh710Z465f7taRAWsguFw kFjCmrxho8yrB890TBZfqQOcuxDdTeGgQSCadYGh aAA1AFSkXK5rxhwaAsWlRJ4vmmcgLbVbMV7tmdh1 UiCfNY3geimlWhAoHOfsGJJgljacUURnw7Pjfvvz GN1jD5Ilc6J8bF9tiEJbPYWfoDRvUvBeRFIhrh8d fWPlFYjrw1PxDOC3xfV3kPJqeTIuCXNkCL36Ehdo f1PlEnvxJCQ4ABPvbpIza5Sab3xfBwKsxvHcM1dz S2SoHOZeTVUuJXBbIyGzjpWxv9Cmw8ZlqZOwsFp3 g6jyFOFcPJOsiUjlz0acIMH5HSHhU1S2bXZze0wc ZZbvHCDdsYF5wcndJHztYTTocoA0xhibJBueOXBo kTQ1vnurRKvqEFKyZiD5bvutSFkxGQPwPYP4SCnd s862XUV7NUbgVcorBNoxPVVpeeYfxbVthBrhRXXt AHKsJLzdVUJlJUcwNDIdPPKzQkAxgObieOkwjS8n XkCeDhIsGMrdIM4aIKWxV5ltbITxCBFaVVWuT1yr PrVgiK6kxHncXNbgflRqSGAuxJikvhrfO75erWGu XHBhcn0= SPECIMEN SOURCE (test code = 3377) x2gicEGlZCJicUUqPuEjQQQpDAYfv9zd ZGVmbGFu CmXbAvWiMmGwPjdlaGEwJHKvHwLit6dyq812jGXe y5ebNYFpKwM5pPFsQHWkuGCeH474a6dhu5rgynOm kWO4FCFgLHD5GYwooaZnfeM2HPbazEUkArL2YUri abTvREsnaxGcvtYqAij6RXCsQ893YOZ1yPddm3tf GIS7JJFwQASrIcRwHd3cdQXsK773MCYyBIJIBSUc qDj2EWTakxVmwpMuuXMVz634G649g9hvDRYzyuFf fKiAgnuit8qmZ936XSBojTYsktHvVsZgGQKipASz cKH8XBGxKZ7sluuqZbFbPC5rsmvfIhKoSE5rmey8 CoDsET6hmgpdAkBuXCaeGWGfyybrBNWhv6Hkzgwb DO3nO0Wtj4X2eZ8udJYvPJLmeJTiGuOtJLClsq9h oOTmUDsyb3FvPIX1hdV7oIIryPYkXXKqDR22Wlot k4WnBdqaCXJ8ONYnijQdu9Vzq6spPzIzczGqV4lx C9DyFFXeDJEjCUEwMuZhwjMwk9Zvo0MqdPJrtAa4 h5fcFEHcFDEkhPkxt2heIAN8ZIZjB0V2iURqo2dd SWamTRWnuNX0baksVNucOZDejdK0pwlaFJqtGJRm qJJ2fyieITwnRVQoGvJ6trqtEOvjUSVcMKW3XQgi e274AMH3WIbbNtsnBZdvGOLipdNgdvMcbEbdHFFv VIDxJWitIYZpFXquMWCfUCEyKaJkaUnzyNuusG0l PwQlRlGdRVqyNT5vQPJxY6hkvXVbQCTjANWyL5wf EqSxyR4ltFxfTVrakbHnYJancXotmYFaESMpIRwy YXJ9 GROSS DESCRIPTION (test code = 3366) b0rvmJRwVWItbVElLzXmAQAwFOKve3 lcZGVmbGFu CeQxZnFeLcFmKzcbnDZcQEBwZiNkw9jzv901cJHj g9adCGRkGkD2oRNyLWLgzMJhX214r6vzb4btfeFx hNX8ICDsPYY0YQcvqbAmexW8JIcudCAlQwP3BBlh alQuKNgmwvTfuhUoZnd2CEEtE588GXS5rHdcc6rf YNK5AVHaLEKmQhFySn3nfLOmZ632IPDvCZFTFRDn uIz7JFCqvpUhezLiyMRUd451O019z6jqZPDosjUm uApQlwjjp5lgS117MBQzdGHkouLnYoCzKXQneQPo nIZ1NIDeNC5lhbosQuKzGN5dwolfYrLkNF2nkbq0 KpEmGE3jjqviWjMnGRaaBKLxazcbNAGsm8Pmvqwt OB9bV8Dju4M0oI5rdVMsSWAorTSoQcXqYKHrmh2l yFUoKEnta6BeCMG7gjQ5eGHegSXcTRVkMH57Ajta m9ClRppfZPQ6TWZfunEce5Rpe5ffAwSjgvYkX4ma J9JsNSZwSQCoUOZxPrPfpsRkb3Vpz4MktPUboIr1 e9xqYOFuFJWquEkni8eqRMR0CGVeB1K2dIDte0xw YPejSNOdoYL9jvtlLOpqTSNejfM1qlsrARrcYDYw fHB6vftfFVoaSBIpTjP5tawyVLpsBFVwJTP4HBil v224UQV5GYdcHehgXJuoOSWjowExeuYibBznCZTo TAKdLDwcQJBeSCicSYNfXKQoCrVhoUvanSaibO3e BmZfQjLaLFpdJT7aOHTlL3ovlLKmRXBzGTWgQ2oo TfNppV1qgLnfPDoquzYrLIZiU4AsuuKwDRSqDHZd IGxhYmVsZWQgImdhbGxibGFkZGVyIiBpcyBhIDEz KwMpD72ntT5gvEKeF5KuVWAmEOOsOPdtAUZ7a1Bd IcRswJR7KWFsZC9uySIyGZXfLRS4AeWvQ66mC0as uKsqKYFnMCgqGPlqxKR2YUQyyS31SNA7RFvywZfa zHLwPVAqDuZPsIKzg2Ubg2YdWGvwXHDlge3ttA9q DICmZRFrzR1bkTmmv4b5iLDcWMYdI4jlUNEimJcj vPZdaMFrBUO4XSPiexSaPBkanNC3nBSys0AcVrHz IJ8dRt5iH3btqGnkSBB0G0EsiJnpnVabez7hARXe xhViHEFzfEujmWDzLwDMcJVrP9LsgVOjHGNiWNFg jVWwx6JdgvHbASQyNPFwduRecVZqWZHses4sNKXb UOXurZcglNa1IWPiiNHjs0DyeR8zWAtmxwNtlpK9 bSbec77gv6ElFOCyw4Q6OB32J66bECG5hIEfKCHz B9U5oJZ9ZUKdeZigRKP7eJYrOPSmz5QxkRQfL5Jb GH7gSytvKN2rE3AzuWzqnrswFaOiWCNxPYygVHDl q87zdJA6FH0mmQdqzrIwBTdiOymiKALedfK5BSpi LR4xDBJ8nbkrYpO4wBS7caCcXpKpP52ypF7rbLfj A9xyNZUwHtLRvdLsXIffcKvcBLNhLAPsAVMcaPtk lPMnTdLEckFctNBqjoM4CQGgJQYqp50oOECrFWGk VXStkUszqOOsIZaniFmhhiS5zNZmu5CtjK9pLsFr ldIdAN30HMAkokEmz0MgfAqooiWmFKSuJKW5Ph6c sPMhJNPgjhKcz7wnw1gyFjJFKUuuA8rqaQflQLO0 L5GwpRZuC5mdUXOohcXgKQWhQzOHYgjzlaQizbHv OX76NFCqitCrI8WxeNCdIERcGMZql2HkiWX1wcNf hiAiaQQmRLS3j1ClWjCioVN8UVShVQVpaDN1lPXh Sw3sfD6fP0prFHmcfIBnlL== MICROSCOPIC DESCRIPTION (test code = [id number] [id number] CgShKiHpCoJkVgbjjPQbSNJuWmYhf0xbi048qSQv h5kaQFCaOvO4cWXlDUZrlZLhM422c3qvm8iwzvDs sOO1AEYuHRX4DXgpwiSpelS4BPyaqRSzHoT5KUlg kwGpYOtijyOjwlXuKqu0OMRxP276QVC0gCrsy4mt KCM1CQUqTGBtBwKxZq3wsUUtU760AIAoWGZMYXUw lKd7YXZoapXkpqNmvMFMa078Q289j5nkZSMghaUg bRrDspphb2acL477FINsiVKuutJhGvYtCABgeIGj sFH9VSQqZK0iobclDxBzHK0lyaibGjXrSR0xbcs4 MqGbXX7zmzshNhRhOWxmWWCznukwOXLlk7Fedjfo BN3tJ4Xey3D4wC7nvLHwZLImqUWoAzJbRHEywm3s gDZfRNusf1RmIQY5kfW3lCQcsQZfPAAmAC69Bgoh w6OtPhzcDXP5RJDjhqAvd3Uhz9kvKzTpkgDvL1yb R0FaATOsPCTcOAIaXdFktvYpo7Pxt8AznIOolTe7 e8dzZWYqUFWexMxek9fuLEN2ELEjM0B4xKIyt8ok ZPqbHYUkzAE5lndxEOqbMYPsxwP7lcfmLGtrRKGa bCH6tqcaWQfyVHGrIeQ1ifsnXTtfKCDsFZR6SKoh c635SCT1GAlpXgxiLHbrCVIqlkOzloMbiKlvJZKf RPCdDSazFBLgMTudSHXpZOHwErDfdIshlAosoM8q XbIcWyQaTKrdUE6mZOIyQ6jzbRZdCDUgVFNbF9va UySfrI4zyFkzGXgobrBkGYDycqSziq8vGC2xuUVe fQ== Gross assessment was performed at (test [facility] C enter, code = 2777) Department of Pathology, [address] [place] [address], Technical component was performed at [facility] er, (test code = 2778) Department of Pathology, [address] [place] [address], Professional component was performed at [facility] C enter, (test code = 2779) Department of Pathology, [address] [place] [address], [facility] [id number] 14:23:00Surgical Pathology Report Case: [id number] Authorizing Provider: Juan R Álvarez MD Collected: 01/26/2019 1702 Ordering Location: [facility] Received: 01/26/2019 1749 SERVICES Pathologist: Domi Williamson MD Specimen: Gallbladder GALLBLADDER, CHOLECYSTECTOMY- CHRONIC CHOLECYSTITIS Signing Pathologist Direct Phone Line: [phone] signed by Domi Williamson MD on 02/04/2019 at 2:23 [id number] colic Gallbladder Received fresh labeled "gallbladder" is a 13.5 cm in length, 2 cm in cystic duct [...] discrete lesions are identified within the wall. Electric Welder Helper sections are submitted as follows: A1, cystic duct margin, en face; A2, artists' booking representative gallbladder wall to include cysticduct and cystic body. SH/ewPerformed.[facility], Department of Pathology, [address] [place] [id number], [facility], Department of Pathology, [address] [place] [address], [facility], [facility], [address] [place] [address], [place] Culture - Routine (Right Venipuncture)2019-01-29 07:00:00 Test Item Value Reference Range Interpretation Comments Result (test code = No growth in 5 days 6463-4) [id number] 07:00:00 Test Item Value Reference Range Interpretation Comments CULTURE (BEAKER) (test No growth in 5 days code = 1095) BLOOD [id number] 07:00:00 Test Item Value Reference Range Interpretation Comments CULTURE (BEAKER) (test No growth in 5 days code = 1095) Basic Metabolic [id number] 07:05:00 Test Item Value Reference Range Interpretation Comments Sodium (test code = 138 meq/L 084-235 7253-2) Potassium (test code = 5.1 meq/L 3.5-5.1 2823-3) Chloride (test code = 106 meq/L 98-107 2075-0) CO2 (test code = 25 meq/L 22-29 2028-9) BUN (test code = 8 mg/dL 7-21 3094-0) Creatinine (test code = 0.71 mg/dL 0.57-1.25 2160-0) Glucose (test code = 132 mg/dL 70-105 H 2345-7) Calcium (test code = 9.3 mg/dL 8.4-10.2 13393-1) EGFR (test code = 84 mL/min/1.73 [place] [address]-9) NOT ACCURATE CREATININE CLEARANCE IN PREDICTING GLOMERULAR FILTRATION RATE . ESTIMATED GFR I S NOT APPLICABLE FOR DIALYSIS PATIEN TS. Lab Interpretation Abnormal (test code = 53598-0) [facility] [id number] 07:05:00 Test Item Value Reference Range Interpretation Comments Protein, Total (test code = 2885-2) 7.2 6.0- 8.3 gm/dL Albumin (test code = 21310-2) 4.0 g/dL 3.5-5 Total Bilirubin (test code = 0.5 mg/dL 0.2-1.2 1974-2) Bilirubin, Direct (test code = 0.2 mg/dL 0.1-0.5 1967-7) Alkaline Phosphatase (test code = 166 U/L 40-150 H 6768-6) AST (test code = 1920-8) 76 U/L 5-34 H ALT (test code = 1742-6) 217 U/L 6-55 H Lab Interpretation (test code = Abnormal 37213-0) [facility] [id number] 07:05:00 Test Item Value Reference Range Interpretation Comments TOTAL PROTEIN (BEAKER) (test code = 7.2 gm/dL 6.0-8.3 770) ALBUMIN (BEAKER) (test code = 1145) 4.0 g/dL 3.5-5.0 BILIRUBIN TOTAL (BEAKER) (test code 0.5 mg/dL 0.2-1.2 = 377) BILIRUBIN DIRECT (BEAKER) (test 0.2 mg/dL 0.1-0.5 code = 706) ALKALINE PHOSPHATASE (BEAKER) (test 166 U/L 40-150 H code = 346) AST (SGOT) (BEAKER) (test code = 76 U/L 5-34 H 353) ALT (SGPT) (BEAKER) (test code = 217 U/L 6-55 H 347) BASIC METABOLIC [id number] 07:05:00 Test Item Value Reference Range Interpretation Comments SODIUM (BEAKER) 138 meq/L 136-145 (test code = 381) POTASSIUM (BEAKER) 5.1 meq/L 3.5-5.1 (test code = 379) CHLORIDE (BEAKER) 106 meq/L 98-107 (test code = 382) CO2 (BEAKER) (test 25 meq/L 22-29 code = 355) BLOOD UREA NITROGEN 8 mg/dL 7-21 (BEAKER) (test code = 354) CREATININE (BEAKER) 0.71 mg/dL 0.57-1.25 (test code = 358) GLUCOSE RANDOM 132 mg/dL 70-105 H (BEAKER) (test code = 652) CALCIUM (BEAKER) 9.3 mg/dL 8.4-10.2 (test code = 697) EGFR (BEAKER) (test 84 mL/min/1.73 ESTIMA JO ANN GFR IS code = 1092) sq m NOT ACCURATE CREATININE CLEARANCE IN PREDICTING GLOMERULAR FILTRATION RATE . ESTIMATED GFR I S NOT APPLICABLE FOR DIALYSIS PATIEN TS. CBC with platelet count + automated [id number] 05:52:00 Test Item Value Reference Range Interpretation Comments WBC (test code = 6690-2) 12.7 3.5- 10.5 K/L H RBC (test code = 789-8) 4.49 3.93- 5.22 M/L MCHC (test code = 786-4) 32.3 32.2- 35.5 GM/DL Hematocrit (test code = 4544-3) 41.5 % 34.1-44.9 MCV (test code = 787-2) 92.4 fL 79.4-94.8 MCH (test code = 785-6) 29.8 pg 25.6-32.2 RDW (test code = 788-0) 13.9 % 11.7-14.4 Platelets (test code = 777-3) 416 150- 450 K/CU MM MPV (test code = 98562-8) 11.4 fL 9.4-12.3 nRBC (test code = 413) 0 0- 0 /100 WBC % Neutros (test code = 429) 85 % % Lymphs (test code = 430) 9 % % Monos (test code = 431) 6 % % Eos (test code = 432) 0 % % Baso (test code = 437) 0 % # Neutros (test code = 670) 10.75 1.56- 6.13 K/L H # Lymphs (test code = 414) 1.15 1.18- 3.74 K/L L # Monos (test code = 415) 0.74 0.24- 0.36 K/L H # Eos (test code = 416) 0.00 0.04- 0.36 K/L L # Baso (test code = 417) 0.04 0.01- 0.08 K/L Immature Granulocytes-Relative 0 % 0-1 (test code = 2801) Lab Interpretation (test code = Abnormal 92142-6) [facility] & AUTO [id number] 05:52:00 Test Item Value Reference Range Interpretation Comments WHITE BLOOD CELL COUNT (BEAKER) 12.7 K/ L 3.5-10.5 H (test code = 775) RED BLOOD CELL COUNT (BEAKER) 4.49 M/ L 3.93-5.22 (test code = 761) HEMOGLOBIN (BEAKER) (test code = 13.4 GM/DL 11.2-15.7 410) HEMATOCRIT (BEAKER) (test code = 41.5 % 34.1-44.9 411) MEAN CORPUSCULAR VOLUME (BEAKER) 92.4 fL 79.4-94.8 (test code = 753) MEAN CORPUSCULAR HEMOGLOBIN 29.8 pg 25.6-32.2 (BEAKER) (test code = 751) MEAN CORPUSCULAR HEMOGLOBIN CONC 32.3 GM/DL 32.2-35.5 (BEAKER) (test code = 752) RED CELL DISTRIBUTION WIDTH 13.9 % 11.7-14.4 (BEAKER) (test code = 412) PLATELET COUNT (BEAKER) (test 416 K/CU MM 150-450 code = 756) MEAN PLATELET VOLUME (BEAKER) 11.4 fL 9.4-12.3 (test code = 754) NUCLEATED RED BLOOD CELLS 0 /100 WBC 0-0 (BEAKER) (test code = 413) NEUTROPHILS RELATIVE PERCENT 85 % (BEAKER) (test code = 429) LYMPHOCYTES RELATIVE PERCENT 9 % (BEAKER) (test code = 430) MONOCYTES RELATIVE PERCENT 6 % (BEAKER) (test code = 431) EOSINOPHILS RELATIVE PERCENT 0 % (BEAKER) (test code = 432) BASOPHILS RELATIVE PERCENT 0 % (BEAKER) (test code = 437) NEUTROPHILS ABSOLUTE COUNT 10.75 K/ L 1.56-6.13 H (BEAKER) (test code = 670) LYMPHOCYTES ABSOLUTE COUNT 1.15 K/ L 1.18-3.74 L (BEAKER) (test code = 414) MONOCYTES ABSOLUTE COUNT (BEAKER) 0.74 K/ L 0.24-0.36 H (test code = 415) EOSINOPHILS ABSOLUTE COUNT 0.00 K/ L 0.04-0.36 L (BEAKER) (test code = 416) BASOPHILS ABSOLUTE COUNT (BEAKER) 0.04 K/ L 0.01-0.08 (test code = 417) IMMATURE GRANULOCYTES-RELATIVE 0 % 0-1 PERCENT (BEAKER) (test code = 2801) BASIC METABOLIC [id number] 06:39:00 Test Item Value Reference Range Interpretation Comments SODIUM (BEAKER) 137 meq/L 136-145 (test code = 381) POTASSIUM (BEAKER) 4.5 meq/L 3.5-5.1 (test code = 379) CHLORIDE (BEAKER) 104 meq/L 98-107 (test code = 382) CO2 (BEAKER) (test 25 meq/L 22-29 code = 355) BLOOD UREA NITROGEN 11 mg/dL 7-21 (BEAKER) (test code = 354) CREATININE (BEAKER) 0.74 mg/dL 0.57-1.25 (test code = 358) GLUCOSE RANDOM 99 mg/dL 70-105 (BEAKER) (test code = 652) CALCIUM (BEAKER) 8.8 mg/dL 8.4-10.2 (test code = 697) EGFR (BEAKER) (test 80 mL/min/1.73 ESTIMA JO ANN GFR IS code = 1092) sq m NOT ACCURATE CREATININE CLEARANCE IN PREDICTING GLOMERULAR FILTRATION RATE . ESTIMATED GFR I S NOT APPLICABLE FOR DIALYSIS PATIEN TS. HEPATIC FUNCTION [id number] 06:29:00 Test Item Value Reference Range Interpretation Comments TOTAL PROTEIN (BEAKER) (test code = 7.3 gm/dL 6.0-8.3 770) ALBUMIN (BEAKER) (test code = 1145) 4.0 g/dL 3.5-5.0 BILIRUBIN TOTAL (BEAKER) (test code 0.5 mg/dL 0.2-1.2 = 377) BILIRUBIN DIRECT (BEAKER) (test 0.2 mg/dL 0.1-0.5 code = 706) ALKALINE PHOSPHATASE (BEAKER) (test 179 U/L 40-150 H code = 346) AST (SGOT) (BEAKER) (test code = 107 U/L 5-34 H 353) ALT (SGPT) (BEAKER) (test code = 278 U/L 6-55 H 347) ANGELES, [id number] 06:18:00 Test Item Value Reference Range Interpretation Comments ABO Grouping (test code = 2588) A Rh Factor (test code = 2589) [facility]G [facility], [id number] 05:53:00 Test Item Value Reference Range Interpretation Comments ABO/RH AUTOMATED (BEAKER) (test A NEGATIVE code = 2260) Ab Scrn (test code = 890-4) NEGATIVE [facility] W/PLT COUNT & AUTO [id number] 05:11:00 Test Item Value Reference Range Interpretation Comments WHITE BLOOD CELL COUNT (BEAKER) 7.7 K/ L 3.5-10.5 (test code = 775) RED BLOOD CELL COUNT (BEAKER) 4.44 M/ L 3.93-5.22 (test code = 761) HEMOGLOBIN (BEAKER) (test code = 13.2 GM/DL 11.2-15.7 410) HEMATOCRIT (BEAKER) (test code = 41.0 % 34.1-44.9 411) MEAN CORPUSCULAR VOLUME (BEAKER) 92.3 fL 79.4-94.8 (test code = 753) MEAN CORPUSCULAR HEMOGLOBIN 29.7 pg 25.6-32.2 (BEAKER) (test code = 751) MEAN CORPUSCULAR HEMOGLOBIN CONC 32.2 GM/DL 32.2-35.5 (BEAKER) (test code = 752) RED CELL DISTRIBUTION WIDTH 14.2 % 11.7-14.4 (BEAKER) (test code = 412) PLATELET COUNT (BEAKER) (test 408 K/CU MM 150-450 code = 756) MEAN PLATELET VOLUME (BEAKER) 10.9 fL 9.4-12.3 (test code = 754) NUCLEATED RED BLOOD CELLS 0 /100 WBC 0-0 (BEAKER) (test code = 413) NEUTROPHILS RELATIVE PERCENT 44 % (BEAKER) (test code = 429) LYMPHOCYTES RELATIVE PERCENT 38 % (BEAKER) (test code = 430) MONOCYTES RELATIVE PERCENT 11 % (BEAKER) (test code = 431) EOSINOPHILS RELATIVE PERCENT 6 % (BEAKER) (test code = 432) BASOPHILS RELATIVE PERCENT 1 % (BEAKER) (test code = 437) NEUTROPHILS ABSOLUTE COUNT 3.40 K/ L 1.56-6.13 (BEAKER) (test code = 670) LYMPHOCYTES ABSOLUTE COUNT 2.89 K/ L 1.18-3.74 (BEAKER) (test code = 414) MONOCYTES ABSOLUTE COUNT (BEAKER) 0.84 K/ L 0.24-0.36 H (test code = 415) EOSINOPHILS ABSOLUTE COUNT 0.43 K/ L 0.04-0.36 H (BEAKER) (test code = 416) BASOPHILS ABSOLUTE COUNT (BEAKER) 0.08 K/ L 0.01-0.08 (test code = 417) IMMATURE GRANULOCYTES-RELATIVE 0 % 0-1 PERCENT (BEAKER) (test code = 2801) HEPATIC FUNCTION [id number] 07:55:00 Test Item Value Reference Range Interpretation Comments TOTAL PROTEIN (BEAKER) (test code = 6.7 gm/dL 6.0-8.3 770) ALBUMIN (BEAKER) (test code = 1145) 3.8 g/dL 3.5-5.0 BILIRUBIN TOTAL (BEAKER) (test code 0.5 mg/dL 0.2-1.2 = 377) BILIRUBIN DIRECT (BEAKER) (test 0.2 mg/dL 0.1-0.5 code = 706) ALKALINE PHOSPHATASE (BEAKER) (test 189 U/L 40-150 H code = 346) AST (SGOT) (BEAKER) (test code = 256 U/L 5-34 H 353) ALT (SGPT) (BEAKER) (test code = 417 U/L 6-55 H 347) T4, [id number] 07:49:00 Test Item Value Reference Range Interpretation Comments Free T4 (test code = 3024-7) 0.91 ng/dL 0.7-1.48 Lab Interpretation (test code = Normal 70682-0) [id number] 07:49[facility]00 Test Item Value Reference Range Interpretation Comments FREE T4 (BEAKER) (test code = 655) 0.91 ng/dL 0.70-1.48 TSH/Free T4 If [id number] 06:59:00 Test Item Value Reference Range Interpretation Comments TSH (test code = 50171-4) 5.32 0.35- 4.94 uIU/mL H Lab Interpretation (test code = Abnormal 41371-7) [facility] T4 IF [id number] 06:59:00 Test Item Value Reference Range Interpretation Comments THYROID STIMULATING HORMONE 5.32 uIU/mL 0.35-4.94 H (BEAKER) (test code = 772) Hepatitis panel, [id number] 06:58:00 Test Item Value Reference Range Interpretation Comments Hep A IgM (test code = 77227-4) Nonreactive Nonreactive Hep B C IgM (test code = 41901-9) Nonreactive Nonreactive Hepatitis C Ab (test code = Nonreactive Nonreactive 98494-5) HBsAg Screen (test code = 5195-3) Nonreactive Nonreactive Lab Interpretation (test code = Normal 80187-8) [facility] [id number] 06:58:00 Test Item Value Reference Range Interpretation Comments HEPATITIS A IGM ANTIBODY (BEAKER) Nonreactive Nonreactive (test code = 498) HEPATITIS B CORE IGM ANTIBODY Nonreactive Nonreactive (BEAKER) (test code = 645) HEPATITIS C ANTIBODY (BEAKER) Nonreactive Nonreactive (test code = 367) HEPATITIS B SURFACE ANTIGEN (2) Nonreactive Nonreactive (BEAKER) (test code = 2585) MR, ABDOMEN, [id number] 17:38:00Anesthesia:->NoneFINAL REPORT TECHNIQUE: MRI of the abdomen and MRCP WITHOUT intravenous contrast. 3-D volume reconstructions were obtained to evaluate the biliary ductal system. INDICATION: Biliary obstruction suspected. COMPARISON: None. FINDINGS: ABSENCE OF INTRAVENOUS CONTRAST DECREASES SENSITIVITY FOR DETECTION OF FOCAL LESIONS AND VASCULAR PATHOLOGY. LOWER THORAX: Unremarkable. LIVER: Nohepatic signal abnormality. No focal hepatic lesions. BILIARY: The gallbladder wall is thickened, and the gallbladder contains sludge. The sludge extends into the cystic duct. While the entire cystic duct is not able to be visualized, there is likely a portion which inserts low and medial.SPLEEN: Small residual spleen.PANCREAS: No focal masses or ductal dilatation. ADRENALS: No adrenal nodules.KIDNEYS/URETERS: No hydronephrosis or solid mass lesions. A left lower pole parapelvic simple renal cyst measures 1.7 cm. PERITONEUM/RETROPERITONEUM: No free fluid.LYMPH NODES: No lymphadenopathy. Prominent but nonenlarged mesenteric, retroperitoneal, and upper abdominal lymph nodes are likely reactive.VESSELS: Unremarkable. GI TRACT: No distention or wall thickening. Prior Sergio-en-Y gastric bypass. BONES AND SOFT TISSUES: Prior bilateral breast augmentation. IMPRESSION: 1.There is gallbladder wall thickening with gallbladder sludge including sludge in the cystic duct. Some small, rounded areas of hypointense T2 weighted signal could be stones. This could be clarified with ultrasound. While this is nonspecific, this could be due to acute cholecystitis in the appropriate clinical setting. If further imaging evaluation is necessary, consider HIDA. 2.The common bile duct is normal in caliber at 0.6 cm indiameter. No choledocholithiasis. 3.The prominent but nonenlarged retroperitoneal, mesenteric and perihepatic lymph nodes are likely reactive. Signed: Baljeet Gillis MDReport Verified Date/Time: 01/24/2019 17:38:42 Reading Location: [facility] C013Y CT Body Reading Room MR abdomen without IV contrast MRCP 2019-01-24 17:38:00Interface, External Ris In - 01/24/2019 5:40 PM CDTFINAL REPORT TECHNIQUE: MRI of the abdomen and MRCP WITHOUT intravenous contrast. 3-D volume reconstructions were obtained to evaluate the biliary ductal system. INDICATION: Biliary obstruction suspected. COMPARISON: None. FINDINGS: ABSENCE OF INTRAVENOUS CONTRAST DECREASES SENSITIVITY FOR DETECTION OF FOCAL LESIONS AND VASCULAR PATHOLOGY. LOWER THORAX: Unremarkable. LIVER: No hepatic signal abnormality. No focal hepatic lesions. BILIARY: The gallbladder wall is thickened, and the gallbladder contains sludge. The sludge extends into the cystic duct. While the entire cystic duct is not able to be visualized, there is likelya portion which inserts low and medial.SPLEEN: Small residual spleen.PANCREAS: No focal masses or ductal dilatation. ADRENALS: No adrenal nodules.KIDNEYS/URETERS: No hydronephrosis or solid mass lesions. A left lower pole parapelvic simple renal cyst measures 1.7 cm. PERITONEUM/RETROPERITONEUM: No free fluid.LYMPH NODES: No lymphadenopathy. Prominent but nonenlarged mesenteric, retroperitoneal, and upper abdominal lymph nodes are likely reactive.VESSELS: Unremarkable. GI TRACT: No distention or wall thickening. Prior Sergio-en-Y gastric bypass. BONES AND SOFT TISSUES: Prior bilateral breast augmentation. IMPRESSION: 1.There is gallbladder wall thickening with gallbladder sludge including sludge in the cystic duct. Some small, rounded areas of hypointense T2 weighted signal could be stones. This cou ld be clarified with ultrasound. While this is nonspecific, this could be due to acute cholecystitisin the appropriate clinical setting. If further imaging evaluation is necessary, consider HIDA. 2.The common bile duct is normal in caliber at 0.6 cm in diameter. No choledocholithiasis. 3.The prominent but nonenlarged retroperitoneal, mesenteric and perihepatic lymph nodes are likely reactive. Signed: Baljeet Gillis MDReport Verified Date/Time: 01/24/2019 17:38:42 Reading Location: [address] BodyReading Room [facility] Prothrombin time/[id number] 01:18:00 Test Item Value Reference Range Interpretation Comments Protime (test code = 12.6 11.9- 14.2 5902-2) seconds INR (test code = 1.0 <=5.9 6301-6) TEGAN (test code = TEGAN) Effective 08/20/2018: PT Reference Range ChangeNew: 11.9-14.2 Previous: 11.7-14.7 RECOMMENDED COUMADIN/WARFARIN INR THERAPY RANGESSTANDARD DOSE: 2.0-3.0 Includes: PROPHYLAXIS for venous thrombosis, systemic embolization; TREATMENT for venous thrombosis and/or pulmonary embolus.HIGH RISK: Target INR is 2.5-3.5 for patients wiht mechanical heart valves. Lab Interpretation Normal (test code = 59329-8) [facility]/[id number] 01:18:00 Test Item Value Reference Range Interpretation Comments PROTIME (BEAKER) (test code = 12.6 seconds 11.9-14.2 759) INR (BEAKER) (test code = 370) 1.0 <=5.9 Effective 08/20/2018: PT Reference Range ChangeNew: 11.9-14.2 Previous: 11.7- 14.7RECOMMENDED COUMADIN/WARFARIN INR THERAPY RANGESSTANDARD DOSE: 2.0-3.0 Includes: PROPHYLAXIS for venous thrombosis, systemic embolization; TREATMENT for venous thrombosis and/or pulmonary embolus.HIGH RISK: Target INR is2.5-3.5 for patients wiht mechanical heart valves.[id number] 01:12:00 Test Item Value Reference Range Interpretation Comments Lipase (test code = 3040-3) 20 U/L 8-78 Lab Interpretation (test code = Normal 85719-0) [facility] 01:12:00 Test Item Value Reference Range Interpretation Comments LIPASE (BEAKER) (test code = 749) 20 U/L 8-78 BASIC METABOLIC [id number] 01:12:00 Test Item Value Reference Range Interpretation Comments SODIUM (BEAKER) 137 meq/L 136-145 (test code = 381) POTASSIUM (BEAKER) 3.7 meq/L 3.5-5.1 (test code = 379) CHLORIDE (BEAKER) 106 meq/L 98-107 (test code = 382) CO2 (BEAKER) (test 23 meq/L 22-29 code = 355) BLOOD UREA NITROGEN 10 mg/dL 7-21 (BEAKER) (test code = 354) CREATININE (BEAKER) 0.70 mg/dL 0.57-1.25 (test code = 358) GLUCOSE RANDOM 95 mg/dL 70-105 (BEAKER) (test code = 652) CALCIUM (BEAKER) 9.1 mg/dL 8.4-10.2 (test code = 697) EGFR (BEAKER) (test 86 mL/min/1.73 ESTIMA JO ANN GFR IS code = 1092) sq m NOT ACCURATE CREATININE CLEARANCE IN PREDICTING GLOMERULAR FILTRATION RATE . ESTIMATED GFR I S NOT APPLICABLE FOR DIALYSIS PATIEN TS. HEPATIC FUNCTION [id number] 01:12:00 Test Item Value Reference Range Interpretation Comments TOTAL PROTEIN (BEAKER) (test code = 7.0 gm/dL 6.0-8.3 770) ALBUMIN (BEAKER) (test code = 1145) 3.9 g/dL 3.5-5.0 BILIRUBIN TOTAL (BEAKER) (test code 0.8 mg/dL 0.2-1.2 = 377) BILIRUBIN DIRECT (BEAKER) (test 0.5 mg/dL 0.1-0.5 code = 706) ALKALINE PHOSPHATASE (BEAKER) (test 223 U/L 40-150 H code = 346) AST (SGOT) (BEAKER) (test code = 1112 U/L 5-34 H 353) ALT (SGPT) (BEAKER) (test code = 668 U/L 6-55 H 347) CBC W/PLT COUNT & AUTO [id number] 00:51:00 Test Item Value Reference Range Interpretation Comments WHITE BLOOD CELL COUNT (BEAKER) 8.7 K/ L 3.5-10.5 (test code = 775) RED BLOOD CELL COUNT (BEAKER) 4.40 M/ L 3.93-5.22 (test code = 761) HEMOGLOBIN (BEAKER) (test code = 13.3 GM/DL 11.2-15.7 410) HEMATOCRIT (BEAKER) (test code = 39.6 % 34.1-44.9 411) MEAN CORPUSCULAR VOLUME (BEAKER) 90.0 fL 79.4-94.8 (test code = 753) MEAN CORPUSCULAR HEMOGLOBIN 30.2 pg 25.6-32.2 (BEAKER) (test code = 751) MEAN CORPUSCULAR HEMOGLOBIN CONC 33.6 GM/DL 32.2-35.5 (BEAKER) (test code = 752) RED CELL DISTRIBUTION WIDTH 13.9 % 11.7-14.4 (BEAKER) (test code = 412) PLATELET COUNT (BEAKER) (test 428 K/CU MM 150-450 code = 756) MEAN PLATELET VOLUME (BEAKER) 10.6 fL 9.4-12.3 (test code = 754) NUCLEATED RED BLOOD CELLS 0 /100 WBC 0-0 (BEAKER) (test code = 413) NEUTROPHILS RELATIVE PERCENT 58 % (BEAKER) (test code = 429) LYMPHOCYTES RELATIVE PERCENT 32 % (BEAKER) (test code = 430) MONOCYTES RELATIVE PERCENT 8 % (BEAKER) (test code = 431) EOSINOPHILS RELATIVE PERCENT 2 % (BEAKER) (test code = 432) BASOPHILS RELATIVE PERCENT 0 % (BEAKER) (test code = 437) NEUTROPHILS ABSOLUTE COUNT 5.01 K/ L 1.56-6.13 (BEAKER) (test code = 670) LYMPHOCYTES ABSOLUTE COUNT 2.79 K/ L 1.18-3.74 (BEAKER) (test code = 414) MONOCYTES ABSOLUTE COUNT (BEAKER) 0.66 K/ L 0.24-0.36 H (test code = 415) EOSINOPHILS ABSOLUTE COUNT 0.15 K/ L 0.04-0.36 (BEAKER) (test code = 416) BASOPHILS ABSOLUTE COUNT (BEAKER) 0.03 K/ L 0.01-0.08 (test code = 417) IMMATURE GRANULOCYTES-RELATIVE 0 % 0-1 PERCENT (PATI) (test code = 2801)
[2019-09-04 21:17] VITALS: BMI 29.2
--- NOTE | 2019-09-04 22:09 | P.HP ---
Certification for Inpatient Patient admitted to: Inpatient With expected LOS: >2 Midnights Practitioner: I am a practitioner with admitting privileges, knowledge of patient current condition, hospital course, and medical plan of care. Services: Services provided to patient in accordance with Admission requirements found in Title 42 Section 412.3 of the Code of Federal Regulations Patient History Date of Service: 09/04/19 Reason for admission: Abdominal pain History of Present Illness: 59-year-old woman with a history of hypothyroidism, history of gastric bypass surgery was transferred from [facility] to here to be admitted for severe acute diverticulitis. Patient reports sudden onset of abdominal pain around 2:00 a.m. this morning. She reports an episode of vomiting. She denied any diarrhea. She reports prior intermittent constipation. She denied any fever. CT scan of the abdomen done at the emergency department report severe sigmoid diverticulitis. No perforation. [place] [address]. Allergies codeine [Codeine] Allergy (Verified 09/04/19 21:18) Itching Sulfa (Sulfonamide Antibiotics) Allergy (Verified 09/04/19 21:18) Hives Home Medications: Levothyroxine [Synthroid*] 0.125 mg PO 0630 09/04/19 - Past Medical/Surgical History Has patient received pneumonia vaccine in the past: No Diabetic: No -: hypothyroidism -: gall bladder -: Gastric bypass surgery - Family History Family History: Reviewed- Non-Contributory - Social History Smoking Status: Never smoker Alcohol use: Yes CD- Drugs: No Caffeine use: Yes Place of Residence: Home Review of Systems Other: Except as documented, all other systems reviewed and negative. Physical Examination - Vital Signs Temperature: 98.7 F Blood Pressure: 95/55 Pulse: 61 Respirations: 18 Pulse Ox (%): 97 - Physical Exam General: Alert, In no apparent distress, Oriented x3 HEENT: Normocephalic, Mucous membr. moist/pink Neck: Supple, JVD not distended Respiratory: Clear to auscultation bilaterally, Normal air movement Cardiovascular: No edema, Normal pulses, Regular rate/rhythm, Normal S1 S2 Gastrointestinal: Normal bowel sounds, Non-distended, No rebound, No guarding, Tenderness (Left lower quadrant) Musculoskeletal: No swelling Integumentary: No rashes Neurological: Normal speech, Normal strength at 5/5 x4 extr Assessment and Plan - Problems (Diagnosis) (1) Acute diverticulitis Current Visit: Yes Status: Acute (2) Hypothyroidism (acquired) Current Visit: Yes Status: Acute - Plan Admit to the medical floor. Start IV Cipro and Flagyl IV fentanyl p.r.n. for pain IV hydration Clear liquid diet. Monitor CBC Serial abdominal examination. Continue home dose Synthroid. - Advance Directives Does patient have a Living Will: No Does patient have a Durable POA for Healthcare: No
[2019-09-04] MEDS ORDERED: ACETAMINOPHEN 500 MG TAB PO PRN (22:23)
[2019-09-04] MEDS ORDERED: FENTANYL CITR 100 MCG/2 ML IV PRN (22:23)
[2019-09-04] MEDS ORDERED: ONDANSETRON 4 MG/2 ML VIAL IV PRN (22:23)
[2019-09-04] MEDS ORDERED: CIPROFLOXACIN 400mg IV 400 MG/200 ML BAG IV SCH (23:00)
[2019-09-04] MEDS: NA CHLORIDE 0.9% 1,000 ML IV SCH (23:26)
[2019-09-05] MEDS: METRONIDAZOLE 500mg IVPB 500 MG/100 ML BAG IV SCH ×2 (00:03→10:07)
[2019-09-05 05:53] LABS: Absolute Lymphocytes (CBC) 2.1 K/uL (0.7-4.9); Basophils % 1.2 % (0-1.3); Hematocrit 33.1 % (36.0-45.0); Lymphocytes % 19.8 % (15.3-44.8); MPV 9.5 fL (7.6-11.3); RBC Red Blood Cell Count 3.57 M/uL (3.86-4.86)
[2019-09-05] MEDS ORDERED: LEVOTHYROXINE SOD 0.125 MG TAB PO SCH (06:30)
[2019-09-05 06:37] LABS: ALT/SGPT 28 U/L (12-78); AST/SGOT 20 U/L (15-37); Alkaline Phosphatase 86 U/L (45-117); BUN Blood Urea Nitrogen 10 mg/dL (7-18); Bicarbonate 25 mmol/L (21-32); Glucose Level 103 mg/dL (74-106); Phosphorus 3.3 mg/dL (2.5-4.9); Potassium 3.5 mmol/L (3.5-5.1); Protein, Total 6.6 g/dL (6.4-8.2); Sodium Level 140 mmol/L (136-145)
--- NOTE | 2019-09-05 07:50 | P.DS ---
Admission Date: 09/04/19 Discharge Date: 09/05/19 Disposition: ROUTINE DISCHARGE Discharge Condition: FAIR Reason for Admission: Abdominal pain Consultations: None Procedures: None - Problems (1) Acute diverticulitis Current Visit: Yes Status: Acute (2) Hypothyroidism (acquired) Current Visit: Yes Status: Acute Brief History of Present Illness: 59-year-old woman with a history of hypothyroidism, history of gastric bypass surgery was transferred from [facility] to here to be admitted for severe acute diverticulitis. Patient reports sudden onset of abdominal pain around 2:00 a.m. this morning. She reports an episode of vomiting. She denied any diarrhea. She reports prior intermittent constipation. She denied any fever. CT scan of the abdomen done at the emergency department report severe sigmoid diverticulitis. No perforation. [place] [address]. Hospital Course: Patient was admitted to the medical floor and treated with IV Flagyl and ciprofloxacin. She was also hydrated with normal saline. Leukocytosis resolved with treatment. Physical examination revealed benign abdomen today. Patient has tolerated clear liquid diet. Her clinical condition has improved rapidly, more than expected within 24 hrs and she is deemed clinically stable for discharge. Vital Signs/Physical Exam: Temp Pulse Resp BP Pulse Ox 97.4 F 61 17 100/54 L 100 09/05/19 04:00 09/05/19 04:00 09/05/19 04:00 09/05/19 04:00 09/05/19 04:00 General: Alert, In no apparent distress HEENT: Mucous membr. moist/pink Respiratory: Clear to auscultation bilaterally, Normal air movement Cardiovascular: No edema, Regular rate/rhythm, Normal S1 S2 Gastrointestinal: Normal bowel sounds, Soft and benign, Non-distended, No tenderness Musculoskeletal: No swelling Integumentary: No rashes Laboratory Data at Discharge: WBC 10.6 K/uL (4.3-10.9) 09/05/19 05:27 Hgb 11.0 g/dL (12.0-15.0) L 09/05/19 05:27 Hct 33.1 % (36.0-45.0) L 09/05/19 05:27 Plt Count 328 K/uL (152-406) 09/05/19 05:27 Sodium 140 mmol/L (136-145) 09/05/19 05:27 Potassium 3.5 mmol/L (3.5-5.1) 09/05/19 05:27 BUN 10 mg/dL (7-18) 09/05/19 05:27 Creatinine 0.61 mg/dL (0.55-1.3) 09/05/19 05:27 Glucose 103 mg/dL (74-106) 09/05/19 05:27 Phosphorus 3.3 mg/dL (2.5-4.9) 09/05/19 05:27 Magnesium 2.0 mg/dL (1.8-2.4) 09/05/19 05:27 Total Bilirubin 1.0 mg/dL (0.2-1.0) 09/05/19 05:27 AST 20 U/L (15-37) 09/05/19 05:27 ALT 28 U/L (12-78) 09/05/19 05:27 Alkaline Phosphatase 86 U/L (45-117) 09/05/19 05:27 Home Medications: Levothyroxine [Synthroid*] 0.125 mg PO 0630 09/04/19 Ciprofloxacin HCl [Cipro 500 MG Tablet] 500 mg PO BID #18 tab 09/05/19 Tramadol HCl [Ultram] 50 mg PO TID PRN #20 tablet 09/05/19 metroNIDAZOLE [Flagyl] 500 mg PO Q8H #27 tablet 09/05/19 New Medications: Ciprofloxacin HCl [Cipro 500 MG Tablet] 500 mg PO BID #18 tab metroNIDAZOLE [Flagyl] 500 mg PO Q8H #27 tablet Tramadol HCl [Ultram] 50 mg PO TID PRN #20 tablet PRN Reason: pain Patient Discharge Instructions: Clear liquid diet for the next 2 days and advance to full diet, soft and then solid diet as tolerated. Diet: Regular Activity: Ad luis Time spent managing pt's care (in minutes): 32
[2019-09-05] MEDS ORDERED: POTASSIUM CL SA 10 MEQ TAB PO ONE (09:00)
[2019-09-05] MEDS: NA CHLORIDE 0.9% 1,000 ML IV SCH (09:00)
[2019-09-05] MEDS ORDERED: ENOXAPARIN 40 MG/0.4 ML SQ SCH (09:00)
[2019-09-05] MEDS ORDERED: CIPROFLOXACIN 400mg IV 400 MG/200 ML BAG IV SCH (09:00)
[2019-09-05 14:14] VITALS: BP 111/67; TEMP 98.4
== END 2019-09-05 11:53 | disposition home or self-care (01) | DRG 392 ==
LOC: 2ND 19:46
PROVIDERS: ADMIT Internal Medicine; ATTEND Internal Medicine
DX: K57.32 Diverticulitis of large intestine without perforation or abscess without bleeding (principal); E03.9 Hypothyroidism, unspecified; D72.829 Elevated white blood cell count, unspecified; Z79.890 Hormone replacement therapy; Z79.899 Other long term (current) drug therapy; Z98.84 Bariatric surgery status; Z88.1 Allergy status to other antibiotic agents; Z88.5 Allergy status to narcotic agent
CPT/HCPCS: 36415; 80053; 83735; 84100; 85025; 87040; J0744; J1650; J7030; U0002

== ENCOUNTER 2021-09-25 17:42 | Emergency (ER) | payer BC, OTHER ==
[2021-09-25 18:13] LABS: Urine Blood 3+ (Negative); Urine Glucose Negative (Negative); Urine Protein 3+ (Negative); Urine Specific Gravity 1.025 (1.005-1.030); Urine pH 5.5 (5.0-7.0)
[2021-09-25] MEDS ORDERED: CEFTRIAXONE 1000 MG/VIAL ONE (18:29)
[2021-09-25] MEDS ORDERED: PHENAZOPYRIDINE 100MG TAB PO ONE (18:29)
[2021-09-25] MEDS ORDERED: LIDOCAINE 1% MPF 5 ML VIAL ONE (18:29)
[2021-09-25] MEDS ORDERED: ACETAMINOPHEN 325 MG TABLET ONE (19:17)
--- NOTE | 2021-09-25 20:06 | ER ---
Nurse's Notes [facility] Name: Marli Fragoso Age: 61 yrs Sex: Female : 1960 Arrival Date: 09/25/2021 Time: 17:43 Bed 19 Private MD: Diagnosis: Hematuria, unspecified;UTI/ Urinary tract infection, site not specified Presentation: 09/25 17:51 Chief complaint: Patient states: pt reports blood in urine, frequency, burning and abel pain. Coronavirus screen: Vaccine status: Patient reports receiving the 2nd dose of the covid vaccine. Ebola Screen: Patient denies travel to an Ebola-affected area in the 21 days before illness onset. Initial Sepsis Screen: Does the patient meet any 2 criteria? HR > 90 bpm. No. Patient's initial sepsis screen is negative. Does the patient have a suspected source of infection? No. Patient's initial sepsis screen is negative. Risk Assessment: Do you want to hurt yourself or someone else? Patient reports no desire to harm self or others. Onset of symptoms was September 25, 2021. 17:51 Method Of Arrival: Ambulatory abel 17:51 Acuity: RHIANNON 3 abel Triage Assessment: 17:52 General: Appears in no apparent distress. Behavior is calm, cooperative. Pain: abel Complains of pain in suprapubic area. Historical: - Allergies: 17:52 Sulfa (Sulfonamide Antibiotics); abel - Home Meds: 17:52 Synthroid Oral [Active]; abel - PMHx: 17:52 Hypothyroidism; abel - Immunization history:: Adult Immunizations up to date. - Social history:: Smoking status: Patient denies any tobacco usage or history of. Screenin:00 Abuse screen: Denies threats or abuse. Nutritional screening: No deficits noted. ll3 Tuberculosis screening: No symptoms or risk factors identified. Fall Risk None identified. Assessment: 19:00 Reassessment: No changes from previously documented assessment. Patient and/or family ll3 updated on plan of care and expected duration. Pain level reassessed. Patient is alert, oriented x 3, equal unlabored respirations, skin warm/dry/pink. 20:16 Reassessment: No changes from previously documented assessment. Patient and/or family ll3 updated on plan of care and expected duration. Pain level reassessed. Patient is alert, oriented x 3, equal unlabored respirations, skin warm/dry/pink. Vital Signs: 17:51 BP 167 / 100; Pulse 73; Resp 19; Temp 98.6; Pulse Ox 98% ; Weight 90.72 kg; Height 5 abel ft. 6 in. (167.64 cm); 19:00 BP 122 / 59; Pulse 66; Resp 18; Pulse Ox 98% on R/A; ll3 17:51 Body Mass Index 32.28 (90.72 kg, 167.64 cm) abel ED Course: 17:43 Patient arrived in ED. j6 17:52 Triage completed. abel 17:52 Arm band placed on. abel 17:54 Rusty Ngo, RN is Primary Nurse. bp 17:57 Aubrey Burton PA is PHCP. [facility] 17:57 Isac Macedo MD is Attending Physician. [facility] 19:00 Patient has correct armband on for positive identification. Bed in low position. Call ll3 light in reach. Side rails up X 1. 19:25 Stone Protocol In Process Unspecified. EDMS 20:05 Geovany Clement MD is Referral Physician. [facility] 20:20 No provider procedures requiring assistance completed. Patient did not have IV access ll3 during this emergency room visit. Administered Medications: 18:15 Drug: Pyridium (phenazopyridine) 200 mg Route: PO; bp 20:16 Follow up: Response: No adverse reaction ll3 18:15 Drug: cefTRIAXone 1 grams Route: IM; Site: left gluteus; bp 20:15 Follow up: Response: No adverse reaction ll3 19:13 Not Given (Patient Refused): Tylenol 650 mg PO once ll3 Medication: 20:20 VIS not applicable for this client. ll3 Outcome: 20:05 Discharge ordered by . [facility] 20:09 Discharged to home ambulatory. ll3 20:09 Condition: stable 20:09 Discharge instructions given to patient, Instructed on discharge instructions, follow up and referral plans. medication usage, Demonstrated understanding of instructions, follow-up care, medications, Prescriptions given X 3. 20:17 Patient left the ED. ll3 Signatures: Dispatcher [employer] EDMS Aubrey Burton PA PA Rusty Babin, RN RN bp Masha Velasquez 6 Manuela Lora RN RN ll3 Farhana Pang RN RN abel Corrections: (The following items were deleted from the chart) 17:53 17:52 Allergies: No Known Allergies; abel abel
--- NOTE | 2021-09-25 20:06 | EDPHYS ---
Physician Documentation [facility] Name: Marli Fragoso Age: 61 yrs Sex: Female : 1960 Arrival Date: 09/25/2021 Time: 17:43 Bed 19 Private MD: ED Physician Isac Macedo HPI: 09/25 18:05 This 61 yrs old Female presents to ER via Ambulatory with complaints of Pain With jmm Urination, HEMATURIA. 18:05 The patient presents with urinary symptoms, dysuria. Onset: The symptoms/episode jmm began/occurred acutely, today. Modifying factors:. Associated signs and symptoms: Pertinent positives: dysuria, Pertinent negatives: fever. This is a 61 year old female with a history of hypothyroidism that presents to the ED with complaints of blood in her urine with increased frequency, pain. Denies vomiting. States having some back pain. . Historical: - Allergies: 17:52 Sulfa (Sulfonamide Antibiotics); abel - Home Meds: 17:52 Synthroid Oral [Active]; abel - PMHx: 17:52 Hypothyroidism; abel - Immunization history:: Adult Immunizations up to date. - Social history:: Smoking status: Patient denies any tobacco usage or history of. ROS: 18:05 Constitutional: Negative for fever, chills, and weight loss, Cardiovascular: Negative jmm for chest pain, palpitations, and edema, Respiratory: Negative for shortness of breath, cough, wheezing, and pleuritic chest pain. 18:05 All other systems are negative. Exam: 18:05 Constitutional: This is a well developed, well nourished patient who is awake, alert, jmm and in no acute distress. Head/Face: atraumatic. Eyes: EOMI, no conjunctival erythema appreciated ENT: Moist Mucus Membranes Neck: Trachea midline, Supple Chest/axilla: Normal chest wall appearance and motion. Cardiovascular: Regular rate and rhythm. No edema appreciated Respiratory: Normal respirations, no respiratory distress appreciated Abdomen/GI: Non distended Back: Normal ROM Skin: General appearance color normal MS/ Extremity: Moves all extremities, no obvious deformities appreciated, no edema noted to the lower extremities Neuro: Awake and alert Psych: Behavior is normal, Mood is normal, Patient is cooperative and pleasant Vital Signs: 17:51 BP 167 / 100; Pulse 73; Resp 19; Temp 98.6; Pulse Ox 98% ; Weight 90.72 kg; Height 5 abel ft. 6 in. (167.64 cm); 19:00 BP 122 / 59; Pulse 66; Resp 18; Pulse Ox 98% on R/A; ll3 17:51 Body Mass Index 32.28 (90.72 kg, 167.64 cm) abel MDM: 18:05 Patient medically screened. [facility] 20:05 Data reviewed: vital signs, nurses notes. Counseling: I had a detailed discussion with oksana the patient and/or guardian regarding: the historical points, exam findings, and any diagnostic results supporting the discharge/admit diagnosis, lab results, the need for outpatient follow up, to return to the emergency department if symptoms worsen or persist or if there are any questions or concerns that arise at home. 09/25 18:13 Order name: Urine Dipstick-Ancillary; Complete Time: 18:14 [facility] 09/25 18:25 Order name: Urine Culture [facility] 09/25 18:28 Order name: Stone Protocol [facility] 09/25 18:05 Order name: Urine Dipstick-Ancillary (obtain specimen); Complete Time: 18:27 [facility] Administered Medications: 18:15 Drug: Pyridium (phenazopyridine) 200 mg Route: PO; bp 20:16 Follow up: Response: No adverse reaction ll3 18:15 Drug: cefTRIAXone 1 grams Route: IM; Site: left gluteus; bp 20:15 Follow up: Response: No adverse reaction ll3 19:13 Not Given (Patient Refused): Tylenol 650 mg PO once ll3 Disposition Summary: 09/25/21 20:05 Discharge Ordered Location: Home [facility] Condition: Stable [facility] Diagnosis - Hematuria, unspecified [facility] - UTI/ Urinary tract infection, site not specified [facility] Followup: [facility] - With: Geovany Clement MD - When: Tomorrow - Reason: Recheck today's complaints, Continuance of care, Re-evaluation by your physician Discharge Instructions: - Discharge Summary Sheet [facility] - Hematuria, Adult [facility] - Urinary Tract Infection, Adult [facility] Forms: - Medication Reconciliation Form [facility] - Thank You Letter [facility] - Antibiotic Education [facility] - Prescription Opioid Use [facility] Prescriptions: - cefpodoxime 200 mg Oral Tablet - take 1 tablet by ORAL route every 12 hours for 10 days with food; 20 tablet; jmm Refills: 0, Product Selection Permitted - Pyridium 200 mg Oral Tablet - take 1 tablet by ORAL route every 8 hours for 2 days; 6 tablet; Refills: 0, [facility] Product Selection Permitted - Tylenol-Codeine #3 300 mg-30 mg Oral - take 1 tablet by ORAL route every 4-6 hours; 20 tablet; Refills: 0, Product jm Selection Permitted Signatures: Dispatcher [employer] EDAZ Aubrey Burton PA PA jmm Peltier, Brian, RN RN bp Loubet, Lynsea, RN RN ll3 Farhana Pang RN RN ha Corrections: (The following items were deleted from the chart) 17:53 17:52 Allergies: No Known Allergies; abel abel 18:50 18:36 Stone Protocol+CT.RAD.BRZ ordered. [facility] EDMS
--- NOTE | 2021-09-25 20:06 | RAD REPORT ---
EXAM DESCRIPTION: CT - Stone Protocol - 09/25/2021 7:24 pm CLINICAL HISTORY: hematuria COMPARISON: <Comparisons> TECHNIQUE: Axial 3 mm thick images were obtained without oral or IV contrast. The [id number] span s the entirety of the system including uppermost abdomen and lung bases. All CT scans are performed using dose optimization technique as appropriate and may include automated exposure control or mA/KV adjustment according to patient size. FINDINGS: No hydronephrosis is present and no obstructing ureteral calculi. No nonobstructing calcul i in the kidneys. A few pelvic floor phleboliths are present. No suspicious renal masses. Isodense ma sses and pyelonephritis are not excluded on a stone protocol CT scan. No significant adrenal finding. No urinary bladder suspicious finding. Uterus and ovaries are as expected for age. No suspicious finding. Imaged portions of the liver, spleen and pancreas show no suspicious findings on non-contrast imaging . Gallbladder is absent. Biliary tree within normal limits. No suspicious bowel findings. Moderate stool volume seen throughout the colon. The stomach and small bowel anastomotic sites are unremarkable. No hernia, mass or bulky lymphadenopathy noted. No free air, free fluid or inflammatory stranding in the peritoneal or retroperitoneal spaces. Stranding and air are seen in the left side gluteal fatty t issues presumed to be site of medication injection. . No significant bony abnormality. Prominent degenerative changes are present at L5-S1. IMPRESSION: Negative CT stone protocol study for acute or significant finding. Isodense masses and pyelonephritis are not excluded on stone protocol technique.
[2021-09-25 20:20] VITALS: TEMP 98.6; O2SAT 98
[2021-09-25 20:21] VITALS: BP 122/59
== END 2021-09-25 20:17 | disposition home or self-care (01) ==
LOC: ER 17:42
DX: R31.9 Hematuria, unspecified (principal); N39.0 Urinary tract infection, site not specified; R30.0 Dysuria; E03.9 Hypothyroidism, unspecified; Z88.2 Allergy status to sulfonamides
CPT/HCPCS: 74176; 76377; 81003; 87086; 87088; 96372; 99283